=== PATIENT | male | born 1980 | race Caucasian/White ===

== ENCOUNTER 2020-04-05 06:31 | Emergency (ER) | payer OTHER ==
[~2020-04-05] VITALS: Ht 177.8 cm; Wt 106.6 kg
--- NOTE | 2020-04-05 06:49 | Emergency Department Note ---
History of Present Illnes History of Present Illness Chief Complaint: Extremity Trauma/Pain History of Present Illness This is a 39 year old male pt [id number] reports pain to bilateral shoulders and bue x2-3 weeks; pt reports has been seen by PCP and was dx'd with muscle strain; No Hx of trauma Arrival Mode: Car Broker Required: No Onset (how long ago): week(s) Location: Bilateral shoulders and elbows Quality: dull Radiation: Reports back Severity: mild Onset quality: gradual Duration (how long): week(s) Timing of current episode: constant Progression: unchanged Chronicity: recurrent Relieving factors: immobilization Exacerbating factors: movement Associated symptoms: Reports denies other symptoms Treatments prior to arrival: NSAID Past Medical/Family History Physician Review I have reviewed the patient's past medical and family history. Any updates have been documented here. Past Medical History Recent Fever: No Clinical Suspicion of Infectio: No New/Unexplained Change in Ment: No Past Medical History: None Past Surgical History: None Social History Smoking Cessation: Never Smoker Counseling Performed: No Alcohol Use: Occasional Any Illegal Drug Use: No TB Exposure/Symptoms: No Physically hurt or threatened: No Family History Family history of heart diseas: No Other Last Tetanus: UNKNOWN Review of Systems Review of Systems Constitutional: Reports no symptoms EENTM: Reports no symptoms Cardiovascular: Reports no symptoms Respiratory: Reports no symptoms Gastrointestinal: Reports no symptoms Genitourinary: Reports no symptoms Musculoskeletal: Reports no symptoms, Reports as per HPI, Reports other (Joint pain elbows, shoulder, radiates to upper back and neck) Integumentary: Reports no symptoms Neurological: Reports no symptoms Psychological: Reports no symptoms Endocrine: Reports no symptoms Hematological/Lymphatic: Reports no symptoms Physical Exam Related Data Allergies: Coded Allergies: No Known Allergies (Unverified , 08/02/14) Vital signs reviewed: Yes Physical Exam CONSTITUTIONAL Constitutional: Present well-developed, Present well-nourished HENT HENT: Present normocephalic, Present atraumatic, Present oropharynx clear/moist, Present nose normal HENT L/R: Present left ext ear normal, Present right ext ear normal EYES Eyes: Reports PERRL, Reports conjunctivae normal NECK Neck: Present ROM normal PULMONARY Pulmonary: Present effort normal, Present breath sounds normal CARDIOVASCULAR Cardiovascular: Present regular rhythm, Present heart sounds normal, Present capillary refill normal, Present normal rate GASTROINTESTINAL Abdominal: Present soft, Present nontender, Present bowel sounds normal GENITOURINARY Genitourinary: Present exam deferred SKIN Skin: Present warm, Present dry MUSCULOSKELETAL Musculoskeletal: Present ROM normal, Present other (ROM WNL in bialteral upper extemities. Sensation intact, pulses 2+/equal radial. No joint swelling or tenderness. ); Absent tenderness (Specifically, no spinal tenderness) NEUROLOGICAL Neurological: Present alert, Present oriented x 3, Present no gross motor or sensory deficits PSYCHOLOGICAL Psychological: Present mood/affect normal, Present judgement normal Procedures 12 Lead ECG Interpretation ECG Interpretation : Broker: Interpreted by ED physician Date: Apr 05, 2020 Time: 06:44 Rhythm: sinus rhythm Rate: normal BPM: 74 QRS axis: normal ST segments normal: Yes T waves normal: Yes Clinical Impression: normal ECG Assessment & Plan Medical Decision Making MDM 39-year-old male with no reported past medical history presents for bilateral shoulder and elbow pain for weeks. He states aggravating symptoms included movement. He drives machinery for work. States he's been seen by his doctor before and was prescribed Robaxin and naproxen but has not started taking this yet. He presents today because it is worse than usual. No cardiac history and no other symptoms noted. Initial differential significant for cardiac mimic versus arthritis versus overuse injury. Workup including x-rays of the shoulders, elbows, chest and EKG are all unremarkable. Diagnosis favors overuse injury. Work note given. Instructed him to take the medications prescribed by his PCP. Doubt emergent process at this time. I discussed results patient as well as expected disease time course and management. They will follow up with their primary care provider or return to the emergency department for new or worsening symptoms. Patient's appropriate for discharge. Reassessment Reassessment time: 07:50 Reassessment Well appearing, NAD Assessment & Plan Final Impression: (1) Arm pain Depart Disposition: HOME, SELF-correction Meds Unable to Obtain Active Prescriptions or Reported Meds CLOTILDE VERGARA MD Apr 05, 2020 06:47
--- NOTE | 2020-04-05 06:52 | NUR ---
NOTIFIED RADIOLOGY OF PT
--- NOTE | 2020-04-05 08:01 | Diagnostic Imaging Report ---
EXAMINATION: CHEST 2 VIEWS INDICATION: pain COMPARISON: None FINDINGS: TUBES and LINES: None. LUNGS: Normal lung volumes. Lungs are clear. No consolidations. PLEURA: No pleural effusion or pneumothorax. HEART AND MEDIASTINUM: The cardiomediastinal silhouette is unremarkable. BONES AND SOFT TISSUES: No acute osseous lesion. Soft tissues are unremarkable. UPPER ABDOMEN: No free air under the diaphragm. IMPRESSION: No acute thoracic radiographic abnormality. Signed by: Salas Paiz MD on 04/05/2020 7:57 AM
--- NOTE | 2020-04-05 08:01 | Diagnostic Imaging Report ---
X-ray 2 views of the right shoulder. HISTORY: Pain. COMPARISON: None available. FINDINGS: Bones: No acute displaced fracture. Osseous alignment is within normal limits. Joints: The joint spaces are well-maintained. Soft tissues: The soft tissues appear unremarkable. IMPRESSION: No acute fracture or dislocation of the right shoulder. Signed by: Salas Paiz MD on 04/05/2020 7:58 AM
--- NOTE | 2020-04-05 08:02 | Diagnostic Imaging Report ---
X-ray left shoulder 2 views HISTORY: Pain. COMPARISON: None available. FINDINGS: Bones: No acute displaced fracture. Osseous alignment is within normal limits. Joints: The joint spaces are well-maintained. Soft tissues: The soft tissues appear unremarkable. IMPRESSION: No acute fracture or dislocation of the left shoulder. Signed by: Salas Paiz MD on 04/05/2020 7:59 AM
--- NOTE | 2020-04-05 08:09 | Diagnostic Imaging Report ---
X-ray left elbow 2 views HISTORY: Pain. COMPARISON: None available. FINDINGS: Bones: No acute displaced fracture. Osseous alignment is within normal limits. Joints: The joint spaces are well-maintained. Soft tissues: The soft tissues appear unremarkable. Question small joint effusion. IMPRESSION: Question small joint effusion. If there is a history of trauma, consider repeat radiographs in 7-10 days to assess for healing changes. Signed by: Salas Paiz MD on 04/05/2020 8:05 AM
--- NOTE | 2020-04-05 08:13 | Diagnostic Imaging Report ---
X-ray right shoulder 2 views HISTORY: Pain. COMPARISON: None available. FINDINGS: Bones: Tiny ossific fragments projecting between the radial head and olecranon on the AP view, and possibly of the coronoid process on the lateral view. Osseous alignment is within normal limits. Joints: The joint spaces are well-maintained. Small joint effusion. IMPRESSION: Tiny ossific fragments adjacent to the medial aspect of the olecranon elbow joint may represent old trauma, or acute avulsed fracture. Small joint effusion. Correlate with history of trauma. Signed by: Salas Paiz MD on 04/05/2020 8:09 AM
== END 2020-04-05 07:55 | disposition home or self-care (01) ==
LOC: ER 06:42
DX: M25.512 Pain in left shoulder (principal); M25.511 Pain in right shoulder
CPT/HCPCS: 71046; 93005; 99283

== ENCOUNTER 2020-04-06 01:25 | Emergency (ER) | payer OTHER ==
[~2020-04-06] VITALS: Ht 177.8 cm; Wt 117.9 kg
[2020-04-06] MEDS ORDERED: KETOROLAC TROMETHAMINE 60 MG/2 ML VIAL IM ONE (01:45)
[2020-04-06] MEDS ORDERED: METHYLPREDNISOLONE SOD SUCC 125 MG/2ML VIAL IM ONE (01:45)
[2020-04-06] MEDS ORDERED: GABAPENTIN 300 MG CAP PO SCH (01:45)
--- NOTE | 2020-04-06 02:05 | Emergency Department Note ---
History of Present Illnes History of Present Illness Chief Complaint: General Medicine Complaints History of Present Illness This is a 39 year old male arrives to the ED with continued right shoulder pain, patient was seen earlier in the ED, was discharged home instructed to fill his prescription service PCP. Patient still failed to fill his prescriptions and is requesting medication the ER. Patient states pain is worse with motion denies any trauma. Historian: Patient Arrival Mode: Car Onset (how long ago): week(s) Radiation: Reports non-radiation Severity: moderate Onset quality: gradual Timing of current episode: constant Progression: waxing and waning Chronicity: recurrent Context: Denies trauma/injury Relieving factors: none Past Medical/Family History Physician Review I have reviewed the patient's past medical and family history. Any updates have been documented here. Past Medical History Recent Fever: No Clinical Suspicion of Infectio: No New/Unexplained Change in Ment: No Past Medical History: None Other Medical History: BRAIN TUMOR, ankle, elbow Past Surgical History: None Other Surgery: PER PT, "PARTIAL REMOVAL OF BRAIN TUMOR" BRAIN TUMOR, ankle, elbow Social History Smoking Cessation: Current every day smoker Counseling Performed: No Any Illegal Drug Use: No Other Last Tetanus: UNKNOWN Any Pre-Existing Lines (PICC,: No Review of Systems Review of Systems Constitutional: Reports no symptoms EENTM: Reports no symptoms Cardiovascular: Reports no symptoms Respiratory: Reports no symptoms Gastrointestinal: Reports no symptoms Genitourinary: Reports no symptoms Musculoskeletal: Reports no symptoms Integumentary: Reports no symptoms Neurological: Reports no symptoms Psychological: Reports no symptoms Endocrine: Reports no symptoms Hematological/Lymphatic: Reports no symptoms Review of other systems: All other systems negative Physical Exam Related Data Allergies: Coded Allergies: No Known Allergies (Unverified , 08/02/14) Triage Vital Signs Vital Signs Date Time Temp Pulse Resp B/P (MAP) Pulse Ox O2 Delivery O2 Flow Rate FiO2 04/06/20 01:34 98.4 78 20 135/82 98 Room Air Vital signs reviewed: Yes Physical Exam CONSTITUTIONAL Constitutional: Present well-developed, Present well-nourished HENT HENT: Present normocephalic, Present atraumatic, Present oropharynx clear/moist, Present nose normal HENT L/R: Present left ext ear normal, Present right ext ear normal EYES Eyes: Reports PERRL, Reports conjunctivae normal NECK Neck: Present ROM normal PULMONARY Pulmonary: Present effort normal, Present breath sounds normal CARDIOVASCULAR Cardiovascular: Present regular rhythm, Present heart sounds normal, Present capillary refill normal, Present normal rate GASTROINTESTINAL Abdominal: Present soft, Present nontender, Present bowel sounds normal GENITOURINARY Genitourinary: Present exam deferred SKIN Skin: Present warm, Present dry MUSCULOSKELETAL Musculoskeletal: Present tenderness; Absent edema, Absent deformity, Absent swelling NEUROLOGICAL Neurological: Present alert, Present oriented x 3, Present no gross motor or sensory deficits PSYCHOLOGICAL Psychological: Present mood/affect normal, Present judgement normal Results Imaging Imaging results reviewed: Yes Assessment & Plan Medical Decision Making MDM 39-year-old male arrives the ED with H Ethan shoulder pain, CT shoulder and cervical spine reveal cervical stenosis which is consistent with his feelings of radiculopathy. Patient's pain was well-controlled, encouraged to fill his prescriptions stable for discharge outpatient orthopedic referral given. Assessment & Plan Final Impression: (1) Arm pain Depart Disposition: HOME, SELF-CARE Last Vital Signs Date Time Temp Pulse Resp B/P (MAP) Pulse Ox O2 Delivery O2 Flow Rate FiO2 04/06/20 01:34 98.4 78 20 135/82 98 Room Air Home Meds Unable to Obtain Active Prescriptions or Reported Meds WILLIAM THOMAS DO Apr 06, 2020 02:04
--- OUTSIDE RECORDS SUMMARY | 2020-04-06 02:23 | XMS REPORT | Continuity of Care Document ---
Author Author M[facility] Organization M[facility] Address Unknown Phone Unavailable Care Team Providers Care Microbiology Coordinator Name Role Phone Marine MONZON, Brenden PP Unavailable Insurance Providers Payer name Policy type / Coverage type Policy ID Covered libertarian ID Policy [place] [employer] - CHOICE PLUS UNITED HE[employer] - CHOICE UNITED [employer] - CHOICE PLUS UNITED HEALTHCARE - CHOICE PLUS UNITED HEALTHCARE - CHOICE PLUS UNITED HEALTHCARE - CHOICE PLUS UNITED HEALTHCARE - CHOICE PLUS UNITED HEALTHCARE - CHOICE PLUS Encounters Encounter Performer Location Date Lab Report Brenden Hawthorne MD [facility] [place], 2014 Problems Problem Effective Dates Problem Status 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, 2014 Active TOBACCO USE DISORDER Sep 01, 2014 Active 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, 2014 Active HEADACHE Sep 08, 2014 Active Procedures Date Description Comments Sep 01, 2014 smoking status Current every day sm oker Sep 01, 2014 smoking/tobacco cessation, patient educa tion and counseling yes Medications Medication Instructions Start Date Status HYDROCODONE-ACETAMINOPHEN 7.5-325 MG TABS Aug Active BROMOCRIPTINE MESYLATE TABS Sep 01, 2014 Acti ve Vital Signs Date Description Test Result Sep 01, 2014 weight E&M - 3141-9 WEIGHT 239 lb Sep 01, 2014 height E&M - 8302-2 HEIGHT 70 in Sep 01, 2014 temperature E&M TEMPERATURE 82.1 deg f Sep 01, 2014 respiratory rate E&M - 9279-1 RESP RATE 18 /min Sep 01, 2014 pulse rate E&M - 8867-4 PULSE RATE 87 /min Sep 01, 2014 blood pressure, systolic - 8480-6 BP SYSTOLIC 135 mm Hg Sep 01, 2014 blood pressure, diastolic - 8462-4 BP DIASTOLIC 87 mm Hg Sep 08, 2014 weight E&M - 3141-9 WEIGHT 233 lb Sep 08, 2014 height E&M - 8302-2 HEIGHT 70 in Sep 08, 2014 temperature E&M TEMPERATURE 97.9 deg f Sep 08, 2014 respiratory rate E&M - 9279-1 RESP RATE 19 /min Sep 08, 2014 pulse rate E&M - 8867-4 PULSE RATE 91 /min Sep 08, 2014 blood pressure, systolic - 8480-6 BP SYSTOLIC 133 mm Hg Sep 08, 2014 blood pressure, diastolic - 8462-4 BP DIASTOLIC 82 mm Hg Results Date Description Test Name Value Reference Interpretation Sta tus Sep 01, 2014 erythrocyte sedimentation rate ESR 1 mm/hr 0-15 Sep 01, 2014 lactate dehydrogenase, serum LDH, TOTAL 175 IU/L 98-192 Sep 01, 2014 follicle stimulating hormone, serum FSH 6800 miu/l Units converted. See lab report for original value. Sep 01, 2014 luteinizing hormone, serum LH 8.46 mIU/mL Sep 01, 2014 thyroid stimulating hormone, serum TSH 1.620 uIU/mL 0.360-3.740 Sep 01, 2014 cortisol, serum CORTISOL SER 7.4 ug/dL 3.0-23.0
--- OUTSIDE RECORDS SUMMARY | 2020-04-06 02:23 | XMS REPORT | Summary of Care ---
Author Organization Unknown Address Unknown Phone Unavailable Encounter HQ Eliseo(FRANKY) [id number] Date(s): 09/18/14 - 09/18/14 [facility] [address] [address] Discharge Disposition: Home Physician Attending: Brenden Hawthorne MD Reason for Visit 227.3 PITUITARY ADENOMA Problem List Condition Effective Dates Status Health Status Informan t Blurred Active vision(Confirmed) Headache(Confirmed) Active Pituitary Active adenoma(Confirmed) Allergies, Adverse Reactions, Alerts Substance Reaction Severity Status NKDA Active Medications No data available for this section Results ELECTROLYTES Most recent to 1 oldest [Reference Range]: Sodium Lvl [135-145 138 mEq/L mEq/L] (09/18/14 3:29 PM) Medications Administered During Your Visit No data available for this section Immunizations Vaccine Date Refusal Reason influenza virus vaccine, inactivated 09/03/14 pneumococcal 23-valent vaccine 09/03/14 Social History Social History Type Response Alcohol Use: Current, Frequency: 1- 2 times per week1 Smoking Status Current every day smoker, T ype: Cigarettes, Exposure to Tobacco Smoke None, Cigarette Smoking Last 365 Days Yes, Re g Smoking Cessation Counseling No 1Patient reports have 1-2 drinks per week.
--- OUTSIDE RECORDS SUMMARY | 2020-04-06 02:23 | XMS REPORT | Summary of Care ---
Author Author [facility] Outpatient Imaging [facility] marisol [facility]patient [facility] marisol Address Unknown Phone Unavailable Encounter HQ Christoferr_reilly(FIN) [id number] Date(s): 04/06/15 - 04/06/15 [facility] Outpatient Imaging House [address] [place] [phone] Discharge Disposition: Home Attending Physician: Brenden Hawthorne MD Vital Signs No data available for this section Problem List Condition Effective Dates Status Health Status Informan t Blurred Active vision(Confirmed) Headache(Confirmed) Active Pituitary Active adenoma(Confirmed) Allergies, Adverse Reactions, Alerts Substance Reaction Severity Status NKDA Active Medications No data available for this section Results No data available for this section Immunizations Vaccine Date Refusal Reason influenza virus vaccine, inactivated 09/03/14 pneumococcal 23-valent vaccine 09/03/14 Procedures Procedure Date Related Diagnosis Body Site Ankle joint operations Foot joint operations MRI Nerve operation Social History Social History Type Response Alcohol Current, Frequency: 1-2 mo es per week.1 Smoking Status Current every day smoker; T ype: Cigarettes; Exposure to Tobacco Smoke None; Cigarette Smoking Last 365 Days Yes; Re g Smoking Cessation Counseling No 1Patient reports have 1-2 drinks per week. Assessment and Plan No data available for this section
--- OUTSIDE RECORDS SUMMARY | 2020-04-06 02:23 | XMS REPORT | Continuity of Care Document ---
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, 2014 Active TOBACCO USE DISORDER Sep 01, 2014 Active 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, 2014 Active HEADACHE Sep 08, 2014 Active Procedures Date Description Comments Sep 01, 2014 smoking status Current every day sm oker Sep 01, 2014 smoking/tobacco cessation, patient educa tion and counseling yes Sep 08, 2014 smoking status Current every day sm oker Sep 08, 2014 smoking/tobacco cessation, patient educa tion and counseling yes Sep 22, 2014 smoking status Current every day sm oker Sep 22, 2014 smoking/tobacco cessation, patient educa tion and counseling yes Medications Medication Instructions Start Date Status HYDROCODONE-ACETAMINOPHEN 7.5-325 MG TABS Aug Inactive BROMOCRIPTINE MESYLATE TABS Sep 01, 2014 Inac tive Vital Signs Date Description Test Result Sep [...] - 8462-4 BP DIASTOLIC 82 mm Hg Sep 22, 2014 weight E&M - 3141-9 WEIGHT 232 lb Sep 22, 2014 height E&M - 8302-2 HEIGHT 70 in Sep 22, 2014 temperature E&M TEMPERATURE 97.2 deg f Sep 22, 2014 respiratory rate E&M - 9279-1 RESP RATE 18 /min Sep 22, 2014 pulse rate E&M - 8867-4 PULSE RATE 87 /min Sep 22, 2014 blood pressure, systolic - 8480-6 BP SYSTOLIC 138 mm Hg Sep 22, 2014 blood pressure, diastolic - 8462-4 BP DIASTOLIC 90 mm Hg Apr 06, 2015 weight E&M - 3141-9 WEIGHT 246.8 lb Apr 06, 2015 height E&M - 8302-2 HEIGHT 70 in Apr 06, 2015 temperature E&M TEMPERATURE 208.8 deg f Apr 06, 2015 pulse rate E&M - 8867-4 PULSE RATE 99 /min Apr 06, 2015 blood pressure, systolic - 8480-6 BP SYSTOLIC 143 mm Hg Apr 06, 2015 blood pressure, diastolic - 8462-4 BP DIASTOLIC 95 mm Hg Results Date Description Test Name [...]
--- OUTSIDE RECORDS SUMMARY | 2020-04-06 02:23 | XMS REPORT | Continuity of Care Document ---
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 09/18/2014 [facility] MENINGIOMA 225.2 Active 09/11/2014 [facility] HEADACHE Active 09/08/2014 Condition 04/06/2015 [facility] Neuro 227.3 Active 09/07/2014 [facility] PITUITARY ADENOMA Active 09/01/2014 Condition 04/06/2015 [facility] Neuro TOBACCO USE DISORDER Active 09/01/2014 Condition 04/06/2015 [facility] Neuro MENINGIOMA Active 09/01/2014 Condition 04/06/2015 [facility] Neuro 368.2 - DIPLOPIA Active 08/05/2014 [facility] [place] PITUATARY ADEMONA Active 09/01/2013 [facility] PITUATARY ADENOMA, ICD 227.3 A ctive 09/01/2013 [facility] Final: 09/06/2014 [facility] Blurring of visual image (finding) Active Problem [facility] [place] [place] Headache (finding) Active Problem 04/09/2015 [facility] [place] [place] Pituitary adenoma (disorder) A ctive Problem [facility] [place] BENIGN ABBY PITUITARY Active [facility] AUSTIN ABBY CEREBR MENINGES Active [facility] Medications Medication Details Route Status Patient Instructions Ordering Provider Order Date Source Morphine Notes: (Same as:MORPh ine Sulfate) No Longer Active 09/04/2014 [facility] Morphine 5 mg, Route: IV, Q2H, Dosing Weight 107, kg, PRN Pain Score 7-10, Start date: 09/03/14 18:53:00, Duration: 30 day, Stop date: 10/03/14 18:52:00 Inactive 09/04/2014 [facility] heparin, porcine Notes: porcin e heparin No Longer Active 09/03/2014 [facility] sennosides, FCI 8.6 MG Oral Tablet Notes: (Same as: Senokot) No Longer Active 09/03/2014 [facility] pneumococcal capsular polysaccharide typ e 1 vaccine / pneumococcal capsular polysaccharide type 10A vaccine / pneumococcal capsular polysaccharide type 11A vaccine / pneumococcal capsular polysaccharide type 12F vaccine / pneumococcal capsular polysacchar Notes: (Same as: Pneumovax 23) Refrigerate Inactive 09/03/2014 [facility] Influenza Virus Vaccine, Inactivated A-B evcjrnx-[id number] (H3N2)-like virus (N-Inzcvdb-195-2007 [facility] X-175C) strain / Influenza Virus Vaccine, Inactivated A-Acvxfwum-00-2007, IVR-148 (H1N1) strain / Influenza Virus Vaccine, Inactivated, B-Qmbmzkz-2-lik Notes: (Same as: Fluzone Quadrivalent) Inactive 09/03/2014 [facility] magnesium sulfate 4 gm, 100 mL , Route: IVPB, Drug form: INJ, ONCE, Start date: 09/02/14 22:00:00, Stop date: 09/02/14 22:00:00 Inactive 09/03/2014 [facility] ceFAZolin + Sodium Chloride 0.9% IV 100 mL Notes: (Same As: Ancef, Kefzol) No Longer Active 09/03/2014 [facility] nter Saline Flush 0.9% Notes: (Same as: BD Posiflush) No Longer Active 09/03/2014 [facility] Famotidine Notes: (Same as: Pe pcid) No Longer Active 09/03/2014 [facility] Docusate Notes: (Same as: Cola ce) No Longer Active 09/03/2014 [facility] Morphine Notes: (Same as:MORPh ine Sulfate) Inactive 09/03/2014 [facility] NS 1,000 mL 1,000 mL, Rate: 75 ml/hr, Infuse over: 13.3 hr, Route: IV, Dosing Weight 107 kg, Total Volume: 1,000, Start date: 09/02/14 18:15:00, Duration: 30 day, Stop date: 10/02/14 18:14:00 No Longer Active 09/03/2014 [facility] Hydrocortisone sodium phosphate 50 MG/ML Injectable Solution Notes: (Same as: Solu-CORTEF) No Longer Active 09/02/2014 [facility] nter 10 ML Cefazolin 100 MG/ML Prefilled Syringe 2 gm, Route: IVPB, Drug form: INJ, Q8H, Dosing Weight 108.636, kg, Start date: 09/02/14 16:00:00, Duration: 3 doses or times, Stop date: 09/03/14 8:00:00 Inactive 09/02/2014 [facility] Ondansetron 4 mg, Route: IVP, ONCE, Dosing Weight 108.636, kg, PRN Nausea & Vomiting, Start date: 09/02/14 15:54:00 Inactive 09/02/2014 [facility] Flumazenil 0.2 mg, Route: IVP, PRN, Dosing Weight 108.636, kg, PRN Benzodiazepine Reversal, Initial dose, Start date: 09/02/14 15:54:00, Duration: 30 day, Stop date: 10/02/14 15:53:00 Inactive 09/02/2014 [facility] Naloxone 0.04 mg, Route: IVP, Q2MIN, Dosing Weight 108.636, kg, PRN Narcotic Reversal, Start date: 09/02/14 15:54:00, Duration: 8 doses or times, Stop date: Limited # of times Inactive 09/02/2014 [facility] nter Hydromorphone 0.5 mg, Route: I CRANE HELPER, Q5Min, Dosing Weight 108.636, kg, PRN Pain Score 7-10, Start date: 09/02/14 15:54:00, Duration: 4 doses or times, Stop date: Limited # of times Inactive 09/02/2014 [facility] nter Labetalol 10 mg, Route: IVP, Q 5Min, Dosing Weight 108.636, kg, PRN Elevated BP, Start date: 09/02/14 15:54:00, Duration: 5 doses or times, Stop date: Limited # of times Inactive 09/02/2014 [facility] nter Saline Flush 0.9% Notes: (Same as: BD Posiflush) No Longer Active 09/02/2014 [facility] Ondansetron Notes: (Same as: Radha boo) No Longer Active 09/02/2014 [facility] Promethazine Notes: . (Same a s: Phenergan) No Longer Active 09/02/2014 [facility] Acetaminophen 325 MG / Hydrocodone Janet trate 10 MG Oral Tablet Notes: Do not exceed 4gm/day of acetamin ophen. (Same as: [place] 325/10) No Longer Active 09/02/2014 [facility] Hydromorphone Notes: Same as: Dilaudid No Longer Active 09/02/2014 [facility] Acetaminophen 325 MG / Hydrocodone Janet trate 7.5 MG Oral Tablet [[place] 7.5/325] 1 tab, PO, PRN, 0 Refill(s) No Longer Active 09/02/2014 [facility] Acetaminophen 325 MG / Hydrocodone Janet trate 5 MG Oral Tablet [[place] 5/325] 1 tab, PO, PRN, 0 Refill(s) Inactive 09/02/2014 [facility] nter Bromocriptine PO, TID, 0 Refil l(s) No Longer Active 09/02/2014 [facility] HYDROCODONE-ACETAMINOPHEN 7.5-325 MG TABS No Longer Active 09/01/2014 [facility] BROMOCRIPTINE MESYLATE TABS No Longer Active 09/01/2014 [facility] Allergies, Adverse Reactions, Alerts No Known Medication Allergies Immunizations Immunization Date Given Site Status Last Updated Comments Source pneumococcal 23-valent vaccine 09/03/2014 Right deltoid completed [place] [facility], JAYLIN Osei,[facility], [place] influenza virus vaccine, inactivated 09/03/2014 Left deltoid completed [place] [facility], JAYLIN Osei,[facility], [place] Results Order Name Results Value Reference Range Date Interpretation Comments Source CHEM PANEL eGFR 79 10/07/2014 <sup>1</sup>Result Comment: The eGFR is calculated using the CKD-EPI formula. In most young, healthy individuals the eGFR will be >90 mL/min/1.73m2. The eGFR declines with age. An eGFR of 60-89 may be normal in some populations, particularly the elderly, for whom the CKD-EPI formula has not been extensively validated. Use of the eGFR is not recommended in the following populations:& lt;br/>
Individuals with unstable creatinine concentrations, including patients and those with serious co-morbid conditions.

Patients with extremes in muscle mass or diet.

The data above are obtained from the National Kidney Disease Education Program (NKDEP) which additionally recommends that when the eGFR is used in patients with extremes of body mass index for purposes of drug dosing, the eGFR should be multiplied by the estimated BMI. [facility] CHEM PANEL Creatinine Lvl 1.2 0.5 - 1.4 10/07/2014 [facility] CHEM PANEL BUN 13 7 - 22 10/07/2014 [facility] ELECTROLYTES Sodium Lvl 138 135 - 145 09/18/2014 [facility] ELECTROLYTES Sodium Lvl 137 135 - 145 09/07/2014 [facility] ELECTROLYTES Sodium Lvl 140 135 - 145 09/04/2014 [facility] URINE AND STOOL UA Spec Grav 1.014 <=1.030 09/03/2014 [facility] ELECTROLYTES Sodium Lvl 139 135 - 145 09/03/2014 [facility] ELECTROLYTES Sodium Lvl 139 135 - 145 09/03/2014 [facility] CHEM PANEL Magnesium Lvl 3.4 1.8 - 2.4 09/03/2014 [facility] CHEM PANEL Phosphorus 3.5 2.5 - 4.5 09/03/2014 [facility] CHEM PANEL eGFR 88 09/03/2014 <sup>1</sup>Result Comment: The eGFR is calculated using the CKD-EPI formula. In most young, healthy individuals the eGFR will be >90 mL/min/1.73m2. The eGFR declines with age. An eGFR of 60-89 may be normal in some populations, particularly the elderly, for whom the CKD-EPI formula has not been extensively validated. Use of the eGFR is not recommended in the following populations:& lt;br/>
Individuals with unstable creatinine concentrations, including patients and those with serious co-morbid conditions.

Patients with extremes in muscle mass or diet.

The data above are obtained from the National Kidney Disease Education Program (NKDEP) which additionally recommends that when the eGFR is used in patients with extremes of body mass index for purposes of drug dosing, the eGFR should be multiplied by the estimated BMI. [facility] CHEM PANEL Calcium Lvl 8.6 8.5 - 10.5 09/03/2014 [facility] CHEM PANEL CO2 24 24 - 32 09/03/2014 [facility] CHEM PANEL Creatinine Lvl 1.1 0.5 - 1.4 09/03/2014 [facility] CHEM PANEL BUN 11 7 - 22 09/03/2014 [facility] CHEM PANEL Chloride Lvl 104 95 - 109 09/03/2014 [facility] CHEM PANEL Potassium Lvl 4.7 3.5 - 5.1 09/03/2014 [facility] CHEM PANEL Glucose Lvl 123 70 - 99 09/03/2014 <sup>4</sup>Interpretive Data: Adult ref erence range values reflect the clinical guidelines
of the [place] [employer]. [facility] CHEM PANEL AGAP 12.7 10.0 - 20.0 09/03/2014 [facility] HEMATOLOGY Hgb 16.1 14.0 - 18.0 09/03/2014 [facility] HEMATOLOGY Hct 46.7 42.0 - 54.0 09/03/2014 [facility] HEMATOLOGY RBC 5.21 4.70 - 6.10 09/03/2014 [facility] HEMATOLOGY RDW 13.9 11.5 - 14.5 09/03/2014 [facility] HEMATOLOGY MCHC 34.4 32.0 - 36.0 09/03/2014 [facility] HEMATOLOGY MCH 30.9 27.0 - 31.0 09/03/2014 [facility] HEMATOLOGY MCV 89.8 80.0 - 94.0 09/03/2014 [facility] HEMATOLOGY Platelet 237 133 - 450 09/03/2014 [facility] HEMATOLOGY MPV 8.8 7.4 - 10.4 09/03/2014 [facility] HEMATOLOGY WBC 22.3 3.7 - 10.4 09/03/2014 [facility] HEMATOLOGY Segs 89.2 45.0 - 75.0 09/03/2014 [facility] HEMATOLOGY Lymphocytes 6.7 20.0 - 40.0 09/03/2014 [facility] HEMATOLOGY Eosinophils 0.1 0.0 - 4.0 09/03/2014 [facility] HEMATOLOGY Lymphocytes # 1.5 1.0 - 5.5 09/03/2014 [facility] HEMATOLOGY Monocytes 3.8 2.0 - 12.0 09/03/2014 [facility] HEMATOLOGY Segs-Bands # 19.8 1.5 - 8.1 09/03/2014 [facility] HEMATOLOGY Basophils 0.2 0.0 - 1.0 09/03/2014 [facility] HEMATOLOGY Monocytes # 0.9 0.0 - 0.8 09/03/2014 [facility] PARATHYROID PROFILE Ca Norm WB 1.06 1.05 - 1.25 09/03/2014 [facility] PARATHYROID PROFILE Ca Ion WB 1.08 1.05 - 1.25 09/03/2014 [facility] URINE AND STOOL UA Spec Grav 1.007 <=1.030 09/03/2014 [facility] CHEM PANEL Osmolality 290 280 - 300 09/03/2014 [facility] URINE AND STOOL UA Spec Grav 1.016 <=1.030 09/03/2014 [facility] URINE CHEM U Osmolality 710 300 - 800 09/03/2014 [facility] CHEM PANEL Magnesium Lvl 1.4 1.8 - 2.4 09/03/2014 [facility] CHEM PANEL Phosphorus 4.2 2.5 - 4.5 09/03/2014 [facility] ELECTROLYTES AGAP 14.4 10.0 - 20.0 09/03/2014 [facility] ELECTROLYTES eGFR 88 09/03/2014 <sup>2</sup>Result Comment: The eGFR is calculated using the CKD-EPI formula. In most young, healthy individuals the eGFR will be >90 mL/min/1.73m2. The eGFR declines with age. An eGFR of 60-89 may be normal in some populations, particularly the elderly, for whom the CKD-EPI formula has not been extensively validated. Use of the eGFR is not recommended in the following populations:& lt;br/>
Individuals with unstable creatinine concentrations, including patients and those with serious co-morbid conditions.

Patients with extremes in muscle mass or diet.

The data above are obtained from the National Kidney Disease Education Program (NKDEP) which additionally recommends that when the eGFR is used in patients with extremes of body mass index for purposes of drug dosing, the eGFR should be multiplied by the estimated BMI. [facility] ELECTROLYTES BUN 12 7 - 22 09/03/2014 [facility] ELECTROLYTES Creatinine Lvl 1.1 0.5 - 1.4 09/03/2014 [facility] ELECTROLYTES Potassium Lvl 4.4 3.5 - 5.1 09/03/2014 [facility] ELECTROLYTES Chloride Lvl 106 95 - 109 09/03/2014 [facility] ELECTROLYTES CO2 23 24 - 32 09/03/2014 [facility] ELECTROLYTES Calcium Lvl 8.4 8.5 - 10.5 09/03/2014 [facility] ELECTROLYTES Glucose Lvl 101 70 - 99 09/03/2014 <sup>5</sup>Interpretive Data: Adult ref erence range values reflect the clinical guidelines
of the [place] [employer]. [facility] HEMATOLOGY Hgb 15.8 14.0 - 18.0 09/03/2014 [facility] HEMATOLOGY RBC 5.33 4.70 - 6.10 09/03/2014 [facility] HEMATOLOGY MCV 89.5 80.0 - 94.0 09/03/2014 [facility] HEMATOLOGY Hct 47.7 42.0 - 54.0 09/03/2014 [facility] HEMATOLOGY MCH 29.7 27.0 - 31.0 09/03/2014 [facility] HEMATOLOGY RDW 14.4 11.5 - 14.5 09/03/2014 [facility] HEMATOLOGY MCHC 33.2 32.0 - 36.0 09/03/2014 [facility] HEMATOLOGY MPV 8.8 7.4 - 10.4 09/03/2014 [facility] HEMATOLOGY Platelet 235 133 - 450 09/03/2014 [facility] HEMATOLOGY WBC 26.8 3.7 - 10.4 09/03/2014 [facility] HEMATOLOGY Monocytes # 1.2 0.0 - 0.8 09/03/2014 [facility] HEMATOLOGY Basophils # 0.1 0.0 - 0.2 09/03/2014 [facility] HEMATOLOGY Segs 89.0 45.0 - 75.0 09/03/2014 [facility] HEMATOLOGY Lymphocytes 6.1 20.0 - 40.0 09/03/2014 [facility] HEMATOLOGY Monocytes 4.5 2.0 - 12.0 09/03/2014 [facility] HEMATOLOGY Eosinophils 0.1 0.0 - 4.0 09/03/2014 [facility] HEMATOLOGY Basophils 0.3 0.0 - 1.0 09/03/2014 [facility] HEMATOLOGY Segs-Bands # 23.8 1.5 - 8.1 09/03/2014 [facility] HEMATOLOGY Lymphocytes # 1.6 1.0 - 5.5 09/03/2014 [facility] PARATHYROID PROFILE Ca Norm WB 1.04 1.05 - 1.25 09/03/2014 [facility] PARATHYROID PROFILE Ca Ion WB 1.06 1.05 - 1.25 09/03/2014 [facility] BLOOD BANK RESULTS Antibody Scrn Negative (09/02/14 10:56 AM) 09/02/2014 [facility] BLOOD BANK RESULTS ABO/Rh O POS 09/02/2014 [facility] CHEM PANEL eGFR 98 09/02/2014 <sup>3</sup>Result Comment: The eGFR is calculated using the CKD-EPI formula. In most young, healthy individuals the eGFR will be >90 mL/min/1.73m2. The eGFR declines with age. An eGFR of 60-89 may be normal in some populations, particularly the elderly, for whom the CKD-EPI formula has not been extensively validated. Use of the eGFR is not recommended in the following populations:& lt;br/>
Individuals with unstable creatinine concentrations, including patients and those with serious co-morbid conditions.

Patients with extremes in muscle mass or diet.

The data above are obtained from the National Kidney Disease Education Program (NKDEP) which additionally recommends that when the eGFR is used in patients with extremes of body mass index for purposes of drug dosing, the eGFR should be multiplied by the estimated BMI. [facility] CHEM PANEL Chloride Lvl 106 95 - 109 09/02/2014 [facility] CHEM PANEL Calcium Lvl 8.9 8.5 - 10.5 09/02/2014 [facility] CHEM PANEL CO2 24 24 - 32 09/02/2014 [facility] CHEM PANEL Creatinine Lvl 1.0 0.5 - 1.4 09/02/2014 [facility] CHEM PANEL Potassium Lvl 4.2 3.5 - 5.1 09/02/2014 [facility] CHEM PANEL Glucose Lvl 113 70 - 99 09/02/2014 <sup>6</sup>Interpretive Data: Adult ref erence range values reflect the clinical guidelines
of the [place] [employer]. [facility] CHEM PANEL BUN 12 7 - 22 09/02/2014 [facility] CHEM PANEL AGAP 12.2 10.0 - 20.0 09/02/2014 [facility] HEMATOLOGY MPV 9.3 7.4 - 10.4 09/02/2014 [facility] HEMATOLOGY RDW 14.1 11.5 - 14.5 09/02/2014 [facility] HEMATOLOGY Platelet 265 133 - 450 09/02/2014 [facility] HEMATOLOGY MCV 89.3 80.0 - 94.0 09/02/2014 [facility] HEMATOLOGY MCHC 33.1 32.0 - 36.0 09/02/2014 [facility] HEMATOLOGY MCH 29.5 27.0 - 31.0 09/02/2014 [facility] HEMATOLOGY Hgb 16.5 14.0 - 18.0 09/02/2014 [facility] HEMATOLOGY Hct 50.0 42.0 - 54.0 09/02/2014 [facility] HEMATOLOGY WBC 12.3 3.7 - 10.4 09/02/2014 [facility] HEMATOLOGY RBC 5.60 4.70 - 6.10 09/02/2014 [facility] HEMATOLOGY Monocytes # 0.6 0.0 - 0.8 09/02/2014 [facility] HEMATOLOGY Lymphocytes # 2.3 1.0 - 5.5 09/02/2014 [facility] HEMATOLOGY Basophils # 0.1 0.0 - 0.2 09/02/2014 [facility] HEMATOLOGY Eosinophils # 0.3 0.0 - 0.5 09/02/2014 [facility] HEMATOLOGY Segs 73.3 45.0 - 75.0 09/02/2014 [facility] HEMATOLOGY Monocytes 5.3 2.0 - 12.0 09/02/2014 [facility] HEMATOLOGY Lymphocytes 18.6 20.0 - 40.0 09/02/2014 [facility] HEMATOLOGY Segs-Bands # 9.0 1.5 - 8.1 09/02/2014 [facility] HEMATOLOGY Basophils 0.5 0.0 - 1.0 09/02/2014 [facility] HEMATOLOGY Eosinophils 2.3 0.0 - 4.0 09/02/2014 [facility] HEMATOLOGY INR 0.95 0.85 - 1.17 09/02/2014 <sup>7</sup>Interpretive Data: RECOMMEND ED RANGES FOR PROTIME INR:
2.0- 3.0 for most medical and surgical thromboembolic states.
2.5-3.5 for artificial heart valves and recurrent embolism.

INR SHOULD BE USED ONLY FOR PATIENTS ON STABLE ANTICOAGULANT THERAPY. [facility] HEMATOLOGY PT 12.7 12.0 - 14.7 09/02/2014 [facility] HEMATOLOGY PTT 32.6 22.9 - 35.8 09/02/2014 <sup>8</sup>Interpretive Data: Heparin T herapeutic Range: 57 - 92 Seconds [facility] Chemistry LDH, TOTAL 175 98 - 192 09/01/2014 [facility] Chemistry FSH [id number] 09/01/2014 [facility] Chemistry LH 8.46 09/01/2014 [facility] Chemistry TSH 1.620 0.360 - 3.740 09/01/2014 [facility] Chemistry CORTISOL SER 7.4 3.0 - 23.0 09/01/2014 [facility] Hematology ESR 1 0 - 15 09/01/2014 [facility] Pathology Reports No Data Provided for This Section Diagnostic Reports Report Value Date Source Brain w/wo contrast MRI EXAM: MRI brain without and with contrast. INDICATION: Sellar mass. COMPARISON: [facility] 03/15/2015, 10/07/2014. TECHNIQUE: Multiecho multiplanar MR sequences of the brain are obtained pre- and postadministration of 15 cc Omni scan. DISCUSSION: No restricted diffusion. A few nonspecific scattered foci of FLAIR hyperintense signal in the frontal lobe white matter are redemonstrated. No mass effect. Ventricles are normal in size. Postoperative changes of transsphenoidal approach sellar surgery are evident. 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 No narrowing of the left internal carotid artery is identified. No suprasellar extension. No abnormal enhancement of the brain parenchyma or leptomeninges is detected. Retention cysts in the maxillary sinuses. Mucosal thickening in the interim posterior ethmoidal air cells. IMPRESSION: Postoperative changes of transsphenoidal approach sellar surgery are evident. Interval resection of previously demonstrated left sellar mass with suggestion of small residual abutting the left cavernous sinus. 04/06/2015 JAYLIN Osei Brain w contrast MRI EXAM: MRI BRAIN WITH CONTRAST. DATE: 10/07/2014 INDICATION: Meningioma, gamma knife. TECHNIQUE: High resolution three-dimensional gradient echo acquisition images of the brain are acquired for the purposes of treatment planning, with the frame for stereotactic location following intravenous administration of 20 cc Multihance. Axial T2 3-D weighted imaging was also acquired. COMPARISON: MRI brain from 09/02/2014. FINDINGS: Limited sequences were acquired for treatment planning. Again demonstrated is enhancing lesion in the left cavernous sinus and lateral aspect of the sella, with partial encasement of the internal carotid artery. Complete opacification of the left sphenoid sinus. IMPRESSION: Limited sequences for treatment planning. No interpretation is rendered. 10/07/2014 [facility] [facility] Consultation Notes No Data Provided for This Section Discharge Summaries No Data Provided for This Section History and Physicals No Data Provided for This Section Vital Signs Vital Sign Value Date Comments Source Weight 246.8 04/06/2015 [facility] Height 70 0 04/06/2015 [facility] Temperature Oral (F) 208.8 F 04/06/2015 [facility] Heart Rate 99 04/06/2015 [facility] Systolic (mm Hg) 143 04/06/2015 [facility] Diastolic (mm Hg) 95 [facility] Height 70 0 09/22/2014 [facility] Temperature Oral (F) 97.2 F 09/22/2014 [facility] Respitory Rate 18 09/22/2014 [facility] Heart Rate 87 09/22/2014 [facility] Systolic (mm Hg) 138 09/22/2014 [facility] Diastolic (mm Hg) 90 09/22/2014 [facility] Weight 233 09/08/2014 [facility] Height 70 0 09/08/2014 [facility] Temperature Oral (F) 97.9 F 09/08/2014 [facility] Respitory Rate 19 09/08/2014 [facility] Heart Rate 91 09/08/2014 [facility] Systolic (mm Hg) 133 09/08/2014 [facility] Diastolic (mm Hg) 82 09/08/2014 [facility] Temperature Oral (F) 97.5 F 09/04/2014 [facility] Heart Rate 85 09/04/2014 [facility] Diastolic (mm Hg) 67 09/04/2014 [facility] Systolic (mm Hg) 110 09/04/2014 [facility] Respitory Rate 18 09/04/2014 [facility] Temperature Oral (F) 97.6 F 09/04/2014 [facility] Diastolic (mm Hg) 72 09/04/2014 [facility] Heart Rate 91 09/04/2014 [facility] Systolic (mm Hg) 131 09/04/2014 [facility] Respitory Rate 18 09/04/2014 [facility] Systolic (mm Hg) 147 09/04/2014 [facility] Diastolic (mm Hg) 86 09/04/2014 [facility] Respitory Rate 18 09/04/2014 [facility] Temperature Oral (F) 97.9 F 09/04/2014 [facility] Heart Rate 103 09/04/2014 [facility] BMI Calculated 33.85 09/02/2014 [facility] Weight 107 09/02/2014 [facility] Height 177.8 cm 09/02/2014 [facility] BMI Calculated 34.36 09/02/2014 [facility] Weight 108.636 09/02/2014 [facility] Height 177.8 cm 09/02/2014 [facility] Weight 239 09/01/2014 [facility] Height 70 0 09/01/2014 [facility] Temperature Oral (F) 82.1 F 09/01/2014 [facility] Respitory Rate 18 09/01/2014 [facility] Heart Rate 87 09/01/2014 [facility] Systolic (mm Hg) 135 09/01/2014 [facility] Diastolic (mm Hg) 87 09/01/2014 [facility] Encounters Location Location Details Encounter Type Encounter Number Reason For Visit Attending Provider ADM Date DC Date Status Source [facility] Out[facility] Imaging [facility] [place] [facility] Services [id number] 00 Juno Chun 08/05/2014 08/06/2014 JAYLIN Winga [facility] Lab Report [id number] Brenden Hawthorne MD 09/01/2014 09/01/2014 [facility] Office Visit [id number] Brenden Hawthorne MD 09/01/2014 09/01/2014 [facility] Outpatient Imaging - [place] Outpt Diag Services [id number] Brenden Hawthorne 0 09/02/2014 [facility]/03[facility] [id number] Brenden Hawthorne 09/02/2014 09/04/2014 [facility] Outpatient [id number] Brenden Hawthorne 09/07/2014 09/08/2014 [facility] Office Visit [id number] Brenden Hawthorne MD 09/08/2014 09/08/2014 [facility] Outpatient [id number] Brenden Hawthorne 09/18/2014 09/19/2014 [facility] Office Visit [id number] Brenden Hawthorne MD 09/22/2014 09/22/2014 [facility] Outpatient [id number] Brenden Hawthorne 10/07/2014 10/07/2014 [facility] Office Visit [id number] Brenden Hawthorne MD 04/06/2015 04/06/2015 [facility] Neuro [facility] Outpatient Imaging [place] Outpt Diag Services [id number] Brenden Hawthorne 0 04/06/2015 04/07/2015 [facility] [place] [facility] [id number] AMBROSE DYER 05/19/2015 [facility] Outpatient [id number] CHARLENE HAWTHORNE 05/19/2015 [facility] Outpatient [id number] JONATHAN GARCÍA 03/31/2016 [facility] Procedures Procedure Code Date Perfomer Comments Source smoking/tobacco cessation, patient educa tion and counseling 14 09/01/2014 yes [facility] Neuro Ankle joint operations [id number] [facility], [facility] joint operations [id number] [id number] [place] Nerve operation [id number] [facility] Assessment and Plan No Data Provided for This Section Plan of Care No Data Provided for This Section Social History Social History Date Source Social History TypeResponse Alcohol Use: Current, Frequency: 1-2 times per week1 Smoking Status Current every day smoker, Type: Cigarettes, Exposure to Tobacco Smoke None, Cigarette Smoking Last 365 Days Yes, Reg Smoking Cessation Counseling No 1Patient reports have 1-2 drinks per week. 09/03/2014 [facility] Social History TypeResponse Alcohol Use: Current, Frequency: 1-2 times per week1 Smoking Status Current every day smoker, Type: Cigarettes, Exposure to Tobacco Smoke None, Cigarette Smoking Last 365 Days Yes, Reg Smoking Cessation Counseling No 1Patient reports have 1-2 drinks per week. 09/03/2014 [facility] [place] Social History TypeResponse Alcohol Use: Current, Frequency: 1-2 times per week1 Smoking Status Current every day smoker, Type: Cigarettes, Exposure to Tobacco Smoke None, Cigarette Smoking Last 365 Days Yes, Reg Smoking Cessation Counseling No 1Patient reports have 1-2 drinks per week. 09/03/2014 [facility] Social History TypeResponse Alcohol Current, Frequency: 1-2 times per week.1 Smoking Status Current every day smoker; Type: Cigarettes; Exposure to Tobacco Smoke None; Cigarette Smoking Last 365 Days Yes; Reg Smoking Cessation Counseling No 1Patient reports have 1-2 drinks per week. 09/03/2014 JAYLIN Osei Family History No Data Provided for This Section Advance Directives No Data Provided for This Section Functional Status No Data Provided for This Section
--- OUTSIDE RECORDS SUMMARY | 2020-04-06 02:23 | XMS REPORT | Continuity of Care Document ---
Author Author [facility] Organization [facility] Address Unknown Phone Unavailable Care Team Providers Care Riverboat Master Name Role Phone Marine MONZON, Brenden PP Unavailable Insurance Providers Payer name Policy type / Coverage type Policy ID Covered alliance party ID Policy [employer] - CHOICE [...] Office Visit Brenden Hawthorne MD [facility] Sep 22, 2014 Problems Problem Effective Dates Problem Status [...] - 8462-4 BP DIASTOLIC 90 mm Hg Results Date Description Test Name [...]
--- OUTSIDE RECORDS SUMMARY | 2020-04-06 02:23 | XMS REPORT | Summary of Care ---
Author Organization Unknown Address Unknown Phone Unavailable Encounter [facility]ise[facility](FRANKY) [id number] Date(s): 09/07/14 - 09/07/14 [facility] [address] [address] Discharge Disposition: Home Physician Attending: Brenden Hawthorne MD Reason for Visit 227.3 Problem List Condition Effective Dates Status Health Status Informan t Blurred Active vision(Confirmed) Headache(Confirmed) Active Pituitary Active adenoma(Confirmed) Allergies, Adverse Reactions, Alerts Substance Reaction Severity Status NKDA Active Medications No data available for this section Results ELECTROLYTES Most recent to 1 oldest [Reference Range]: Sodium Lvl [135-145 137 mEq/L mEq/L] (09/07/14 1:23 PM) Medications Administered During Your Visit No [...]
--- OUTSIDE RECORDS SUMMARY | 2020-04-06 02:23 | XMS REPORT | Summary of Care ---
Author Organization Unknown Address Unknown Phone Unavailable Encounter HQ Lucas_reilly(FRANKY) [id number] Date(s): 09/02/14 - 09/04/[address] Final: Discharge Disposition: Home Physician Attending: Brenden Hawthorne MD Physician Admitting: Brenden Hawthorne MD Physician_Referring: Brenden Hawthorne MD Reason for Visit PITUATARY ADENOMA, ICD 227.3 Vital Signs 1 2 3 Most recent to oldest [Reference Range]: 177.8 cm (09/02/14 5:49 PM) 177.8 cm (09/02/14 10:52 AM) Height 97.5 DegF (09/04/14 4:13 AM) 97.6 DegF (09/03/14 11:23 PM) 97.9 DegF (09/03/14 8:17 PM) Temperature Oral [96.4-99.1 DegF] 110 mmHg (09/04/14 4:13 AM) 131 mmHg (09/03/14 11:23 PM) 147 mmHg *HI* (09/03/14 8:17 PM) Systolic Blood Pressure [90-140 mmHg] 67 mmHg (09/04/14 4:13 AM) 72 mmHg (09/03/14 11:23 PM) 86 mmHg (09/03/14 8:17 PM) Diastolic Blood Pressure [60-90 mmHg] 18 BRMIN (09/04/14 4:13 AM) 18 BRMIN (09/03/14 11:23 PM) 18 BRMIN (09/03/14 8:17 PM) Respiratory Rate [14-20 BRMIN] 85 bpm (09/04/14 4:13 AM) 91 bpm (09/03/14 11:23 PM) 103 bpm *HI* (09/03/14 8:17 PM) Peripheral Pulse Rate [60-100 bpm] 107 kg (1/7/15 5:49 PM) 108.636 kg (09/02/14 10:52 AM) Weight 33.85 m2 (09/02/14 5:49 PM) 34.36 m2 (09/02/14 10:52 AM) Body Mass Index Problem List Condition Effective Dates Status Health Status Informan t Blurred Active vision(Confirmed) Headache(Confirmed) Active Pituitary Active adenoma(Confirmed) Allergies, Adverse Reactions, Alerts Substance Reaction Severity Status NKDA Active Medications acetaminophen-hydrocodone 325 mg-10 mg oral tablet 1 tab, Route: PO, Drug Form: TAB, Dosing Weight 108.636, kg, Q4H, PRN Pain Score 1-3, Start date: 09/02/14 13:01:00, Duration: 30 day, Stop date: 10/02/14 13:00 :00 Notes: Do not exceed 4gm/day of acetaminophen. (Same as: Hermitage 325/10) Start Date: 09/02/14 Stop Date: 09/04/14 Status: Discontinued acetaminophen-hydrocodone 325 mg-10 mg oral tablet 2 tab, Route: PO, Drug Form: TAB, Dosing Weight 108.636, kg, Q4H, PRN Pain Score 4-6, Start date: 09/02/14 13:01:00, Duration: 30 day, Stop date: 10/02/14 13:00 :00 Notes: Do not exceed 4gm/day of acetaminophen. (Same as: [place] 325/10) Start Date: 09/02/14 Stop Date: 09/04/14 Status: Discontinued bromocriptine PO, TID, 0 Refill(s) Start Date: 09/02/14 Stop Date: 09/04/14 Status: Discontinued ceFAZolin (SCIP) 2 gm, Route: IVPB, Drug form: INJ, Q8H, Dosing Weight 108.636, kg, Start date: 0 09/02/14 16:00:00, Duration: 3 doses or times, Stop date: 09/03/14 8:00:00 Start Date: 09/02/14 Stop Date: 09/02/14 Status: Deleted ceFAZolin + Sodium Chloride 0.9% IV 100 mL 2 gm, Route: IVPB, ABXQ8H, Start date: 09/02/14 22:00:00, Duration: 3 doses or t imes, Stop date: 09/03/14 14:00:00 Notes: (Same As: Ancef, Kefzol) Start Date: 09/02/14 Stop Date: 09/03/14 Status: Completed docusate 100 mg, 1 cap, Route: PO, Drug form: CAP, Q12H, Dosing Weight 108.636, kg, Start date: 09/02/14 21:00:00, Duration: 30 day, Stop date: 10/02/14 9:00:00 Notes: (Same as: Colace) Start Date: 09/02/14 Stop Date: 09/04/14 Status: Discontinued famotidine 20 mg, 1 tab, Route: PO, Drug form: TAB, Q12H, Dosing Weight 108.636, kg, Start date: 09/02/14 21:00:00, Duration: 30 day, Stop date: 10/02/14 9:00:00 Notes: (Same as: Pepcid) Start Date: 09/02/14 Stop Date: 09/04/14 Status: Discontinued flumazenil 0.2 mg, Route: IVP, PRN, Dosing Weight 108.636, kg, PRN Benzodiazepine Reversal, Initial dose, Start date: 09/02/14 15:54:00, Duration: 30 day, Stop date: 10/02 15:53:00 Start Date: 09/02/14 Stop Date: 09/02/14 Status: Discontinued heparin 5,000 unit, 1 mL, Route: SUB-Q, Drug form: INJ, Q8H, Dosing Weight 107, kg, Star t date: 09/03/14 16:00:00, Duration: 30 day, Stop date: 10/03/14 8:00:00 Notes: porcine heparin Start Date: 09/03/14 Stop Date: 09/04/14 Status: Discontinued hydrocortisone 100 mg injection 50 mg, 1 mL, Route: IV, Drug form: PDR/INJ, Q8H, Dosing Weight 108.636, kg, Star t date: 09/02/14 16:00:00, Duration: 30 day, Stop date: 10/02/14 8:00:00 Notes: (Same as: Solu-CORTEF) Start Date: 09/02/14 Stop Date: 09/04/14 Status: Discontinued hydromorphone 0.5 mg, Route: IVP, Q5Min, Dosing Weight 108.636, kg, PRN Pain Score 7-10, Start date: 09/02/14 15:54:00, Duration: 4 doses or times, Stop date: Limited # of ti mes Start Date: 09/02/14 Stop Date: 09/02/14 Status: Discontinued hydromorphone 0.5 mg, 0.25 mL, Route: IVP, Drug form: INJ, Q4H, Dosing Weight 108.636, kg, PRN Pain Score 7-10, Start date: 09/02/14 13:01:00, Duration: 30 day, Stop date: 13:00:00 Notes: Same as: Dilaudid Start Date: 09/02/14 Stop Date: 09/03/14 Status: Discontinued influenza virus vaccine, inactivated 0.5 ml, Route: IM, Drug Form: SUSP, Daily, Start date: 09/03/14 9:00:00, Duratio n: 1 doses or times, Stop date: 09/03/14 9:00:00 Notes: (Same as: Fluzone Quadrivalent) Start Date: 09/03/14 Stop Date: 09/03/14 Status: Completed labetalol 10 mg, Route: IVP, Q5Min, Dosing Weight 108.636, kg, PRN Elevated BP, Start date : 09/02/14 15:54:00, Duration: 5 doses or times, Stop date: Limited # of times Start Date: 09/02/14 Stop Date: 09/02/14 Status: Discontinued magnesium sulfate 4 gm, 100 mL, Route: IVPB, Drug form: INJ, ONCE, Start date: 09/02/14 22:00:00, Stop date: 09/02/14 22:00:00 Start Date: 09/02/14 Stop Date: 09/02/14 Status: Completed magnesium sulfate 2 gm, 50 mL, Route: IVPB, Drug form: INJ, Q2H, Start date: 09/02/14 22:00:00, Du ration: 2 doses or times, Stop date: 09/03/14 0:00:00 Start Date: 09/02/14 Stop Date: 09/03/14 Status: Completed morphine Sulfate 5 mg, Route: IV, Q2H, Dosing Weight 107, kg, PRN Pain Score 7-10, Start date: 18:53:00, Duration: 30 day, Stop date: 10/03/14 18:52:00 Start Date: 09/03/14 Stop Date: 09/03/14 Status: Discontinued morphine Sulfate 2 mg, 1 mL, Route: IVP, Drug form: INJ, ONCE, Dosing Weight 107, kg, Start date: 09/02/14 19:41:00, Stop date: 09/02/14 19:41:00 Notes: (Same as:MORPhine Sulfate) Start Date: 09/02/14 Stop Date: 09/02/14 Status: Completed morphine Sulfate 2 mg, 1 mL, Route: IVP, Drug form: INJ, Q4H, Dosing Weight 107, kg, PRN Pain Sco re 7-10, Start date: 09/03/14 21:55:00, Duration: 30 day, Stop date: 10/03/14 21 :54:00 Notes: (Same as:MORPhine Sulfate) Start Date: 09/03/14 Stop Date: 09/04/14 Status: Discontinued naloxone 0.04 mg, Route: IVP, Q2MIN, Dosing Weight 108.636, kg, PRN Narcotic Reversal, St art date: 09/02/14 15:54:00, Duration: 8 doses or times, Stop date: Limited # of times Start Date: 09/02/14 Stop Date: 09/02/14 Status: Discontinued Hermitage 5/325 oral tablet 1 tab, PO, PRN, 0 Refill(s) Start Date: 09/02/14 Stop Date: 09/02/14 Status: Discontinued Hermitage 7.5/325 oral tablet 1 tab, PO, PRN, 0 Refill(s) Start Date: 09/02/14 Stop Date: 09/04/14 Status: Discontinued NS 1,000 mL 1,000 mL, Rate: 75 ml/hr, Infuse over: 13.3 hr, Route: IV, Dosing Weight 107 kg, Total Volume: 1,000, Start date: 09/02/14 18:15:00, Duration: 30 day, Stop date: 10/02/14 18:14:00 Start Date: 09/02/14 Stop Date: 09/04/14 Status: Discontinued ondansetron 4 mg, Route: IVP, ONCE, Dosing Weight 108.636, kg, PRN Nausea & Vomiting, Start date: 09/02/14 15:54:00 Start Date: 09/02/14 Stop Date: 09/02/14 Status: Discontinued ondansetron 4 mg, 2 mL, Route: IVP, Drug form: INJ, Q8H, Dosing Weight 108.636, kg, PRN Naus ea & Vomiting, Start date: 09/02/14 13:01:00, Duration: 30 day, Stop date: 10/02/14 13:00:00 Notes: (Same as: Zofran) Start Date: 09/02/14 Stop Date: 09/04/14 Status: Discontinued pneumococcal 23-valent vaccine 0.5 ml, Route: IM, Drug Form: INJ, Daily, Start date: 09/03/14 9:00:00, Duration : 1 doses or times, Stop date: 09/03/14 9:00:00 Notes: (Same as: Pneumovax 23) Refrigerate Start Date: 09/03/14 Stop Date: 09/03/14 Status: Completed promethazine 12.5 mg, 0.5 mL, Route: IVPB, Drug form: INJ, Q6H, Dosing Weight 108.636, kg, [place] N Nausea & Vomiting, Start date: 09/02/14 13:01:00, Duration: 30 day, Stop date: 10/02/14 13:00:00 Notes: . (Same as: Phenergan) Start Date: 09/02/14 Stop Date: 09/04/14 Status: Discontinued Saline Flush 0.9% 10 ml, Route: IVP, Drug Form: INJ, Dosing Weight 108.636, kg, PRN, PRN Line Flus h, Start date: 09/02/14 13:01:00, Duration: 30 day, Stop date: 10/02/14 13:00:00 Notes: (Same as: BD Posiflush) Start Date: 09/02/14 Stop Date: 09/04/14 Status: Discontinued Saline Flush 0.9% 10 ml, Route: IVP, Drug Form: INJ, Dosing Weight 108.636, kg, Q12H, Start date: 09/02/14 21:00:00, Duration: 30 day, Stop date: 10/02/14 9:00:00 Notes: (Same as: BD Posiflush) Start Date: 09/02/14 Stop Date: 09/04/14 Status: Discontinued senna 8.6 mg oral tablet 8.6 mg, 1 tab, Route: PO, Drug Form: TAB, Dosing Weight 107, kg, BID, Start date : 09/03/14 9:00:00, Duration: 30 day, Stop date: 10/02/14 17:00:00 Notes: (Same as: Senokot) Start Date: 09/03/14 Stop Date: 09/04/14 Status: Discontinued Results BLOOD BANK RESULTS 1 2 3 Most recent to oldest [Reference Range]: O POS *Unknown* (09/02/14 10:56 AM) ABO/Rh Negative (09/02/14 10:56 AM) Antibody Scrn ELECTROLYTES 1 2 3 Most recent to oldest [Reference Range]: 140 mEq/L (09/03/14 9:54 PM) 139 mEq/L (09/03/14 2:00 PM) 139 mEq/L (09/03/14 9:57 AM) Sodium Lvl [135-145 mEq/L] 4.7 mEq/L (09/03/14 3:00 AM) 4.4 mEq/L (09/02/14 7:53 PM) 4.2 mEq/L (09/02/14 10:56 AM) Potassium Lvl [3.5-5.1 mEq/L] 104 mEq/L (09/03/14 3:00 AM) 106 mEq/L (09/02/14 7:53 PM) 106 mEq/L (09/02/14 10:56 AM) Chloride Lvl [95-109 mEq/L] 24 mEq/L (09/03/14 3:00 AM) 23 mEq/L *LOW* (09/02/14 7:53 PM) 24 mEq/L (09/02/14 10:56 AM) CO2 [24-32 mEq/L] 12.7 mEq/L (09/03/14 3:00 AM) 14.4 mEq/L (09/02/14 7:53 PM) 12.2 mEq/L (09/02/14 10:56 AM) AGAP [10.0-20.0 mEq/L] CHEM PANEL 1 2 3 Most recent to oldest [Reference Range]: 1.1 mg/dL (09/03/14 3:00 AM) 1.1 mg/dL (09/02/14 7:53 PM) 1.0 mg/dL (09/02/14 10:56 AM) Creatinine Lvl [0.5-1.4 mg/dL] 88 mL/min/1.73m2 1 *NA* (09/03/14 3:00 AM) 88 mL/min/1.73m2 2 *NA* (09/02/14 7:53 PM) 98 mL/min/1.73m2 3 *NA* (09/02/14 10:56 AM) eGFR 11 mg/dL (09/03/14 3:00 AM) 12 mg/dL (09/02/14 7:53 PM) 12 mg/dL (09/02/14 10:56 AM) BUN [7-22 mg/dL] 123 mg/dL 4 *HI* (09/03/14 3:00 AM) 101 mg/dL 5 *HI* (09/02/14 7:53 PM) 113 mg/dL 6 *HI* (09/02/14 10:56 AM) Glucose Lvl [70-99 mg/dL] 8.6 mg/dL (09/03/14 3:00 AM) 8.4 mg/dL *LOW* (09/02/14 7:53 PM) 8.9 mg/dL (09/02/14 10:56 AM) Calcium Lvl [8.5-10.5 mg/dL] 3.5 mg/dL (09/03/14 3:00 AM) 4.2 mg/dL (09/02/14 7:53 PM) Phosphorus [2.5-4.5 mg/dL] 3.4 mg/dL *HI* (09/03/14 3:00 AM) 1.4 mg/dL *LOW* (09/02/14 7:53 PM) Magnesium Lvl [1.8-2.4 mg/dL] 290 mOsm/kg (09/02/14 9:30 PM) Osmolality [280-300 mOsm/kg] 1Result Comment: The eGFR is calculated using the CKD-EPI formula. In most young, healthy individuals the eGFR will be >90 mL/min/1.73m2. The eGFR declines with age. An eGFR of 60-89 may be normal in some populations, particularly the elderly, for whom the CKD-EPI formula has not been extensively validated. Use of the eGFR is not recommended in the following populations: Individuals with unstable creatinine concentrations, including patients and those with serious co-morbid conditions. Patients with extremes in muscle mass or diet. The data above are obtained from the National Kidney Disease Education Program ( NKDEP) which additionally recommends that when the eGFR is used in patients with extremes of body mass index for purposes of drug dosing, the eGFR should be mul tiplied by the estimated BMI. 2Result Comment: The eGFR is calculated using the CKD-EPI formula. In most young, healthy individuals the eGFR will be >90 mL/min/1.73m2. The eGFR declines with age. An eGFR of 60-89 may be normal in some populations, particularly the elderly, for whom the CKD-EPI formula has not been extensively validated. Use of the eGFR is not recommended in the following populations: Individuals with unstable creatinine concentrations, including patients and those with serious co-morbid conditions. Patients with extremes in muscle mass or diet. The data above are obtained from the National Kidney Disease Education Program ( NKDEP) which additionally recommends that when the eGFR is used in patients with extremes of body mass index for purposes of drug dosing, the eGFR should be mul tiplied by the estimated BMI. 3Result Comment: The eGFR is calculated using the CKD-EPI formula. In most young, healthy individuals the eGFR will be >90 mL/min/1.73m2. The eGFR declines with age. An eGFR of 60-89 may be normal in some populations, particularly the elderly, for whom the CKD-EPI formula has not been extensively validated. Use of the eGFR is not recommended in the following populations: Individuals with unstable creatinine concentrations, including patients and those with serious co-morbid conditions. Patients with extremes in muscle mass or diet. The data above are obtained from the National Kidney Disease Education Program ( NKDEP) which additionally recommends that when the eGFR is used in patients with extremes of body mass index for purposes of drug dosing, the eGFR should be mul tiplied by the estimated BMI. 4Interpretive Data: Adult reference range values reflect the clinical guidelines of the [place] [employer]. 5Interpretive Data: Adult reference range values reflect the clinical guidelines of the [place] [employer]. 6Interpretive Data: Adult reference range values reflect the clinical guidelines of the [place] [employer]. PARATHYROID PROFILE 1 2 3 Most recent to oldest [Reference Range]: 1.08 mMol/L (09/03/14 3:00 AM) 1.06 mMol/L (09/02/14 7:53 PM) Ca Ion WB [1.05-1.25 mMol/L] 1.06 mMol/L (09/03/14 3:00 AM) 1.04 mMol/L *LOW* (09/02/14 7:53 PM) Ca Norm WB [1.05-1.25 mMol/L] URINE CHEM 1 2 3 Most recent to oldest [Reference Range]: 710 mOsm/kg (09/02/14 9:30 PM) U Osmolality [300-800 mOsm/kg] URINE AND STOOL 1 2 3 Most recent to oldest [Reference Range]: 1.014 (09/03/14 2:58 PM) 1.007 (09/03/14 3:00 AM) 1.016 (09/02/14 9:30 PM) UA Spec Grav [<=1.030] HEMATOLOGY 1 2 3 Most recent to oldest [Reference Range]: 22.3 K/CMM *HI* (09/03/14 3:00 AM) 26.8 K/CMM *HI* (09/02/14 7:53 PM) 12.3 K/CMM *HI* (09/02/14 10:56 AM) WBC [3.7-10.4 K/CMM] 5.21 M/CMM (09/03/14 3:00 AM) 5.33 M/CMM (09/02/14 7:53 PM) 5.60 M/CMM (09/02/14 10:56 AM) RBC [4.70-6.10 M/CMM] 16.1 g/dL (09/03/14 3:00 AM) 15.8 g/dL (09/02/14 7:53 PM) 16.5 g/dL (09/02/14 10:56 AM) Hgb [14.0-18.0 g/dL] 46.7 % (09/03/14 3:00 AM) 47.7 % (09/02/14 7:53 PM) 50.0 % (09/02/14 10:56 AM) Hct [42.0-54.0 %] 89.8 fL (09/03/14 3:00 AM) 89.5 fL (09/02/14 7:53 PM) 89.3 fL (09/02/14 10:56 AM) MCV [80.0-94.0 fL] 30.9 pg (09/03/14 3:00 AM) 29.7 pg (09/02/14 7:53 PM) 29.5 pg (09/02/14 10:56 AM) MCH [27.0-31.0 pg] 34.4 g/dL (09/03/14 3:00 AM) 33.2 g/dL (09/02/14 7:53 PM) 33.1 g/dL (09/02/14 10:56 AM) MCHC [32.0-36.0 g/dL] 13.9 % (09/03/14 3:00 AM) 14.4 % (09/02/14 7:53 PM) 14.1 % (09/02/14 10:56 AM) RDW [11.5-14.5 %] 237 K/CMM (09/03/14 3:00 AM) 235 K/CMM (09/02/14 7:53 PM) 265 K/CMM (09/02/14 10:56 AM) Platelet [133-450 K/CMM] 8.8 fL (09/03/14 3:00 AM) 8.8 fL (09/02/14 7:53 PM) 9.3 fL (09/02/14 10:56 AM) MPV [7.4-10.4 fL] 89.2 % *HI* (09/03/14 3:00 AM) 89.0 % *HI* (09/02/14 7:53 PM) 73.3 % (09/02/14 10:56 AM) Segs [45.0-75.0 %] 6.7 % *LOW* (09/03/14 3:00 AM) 6.1 % *LOW* (09/02/14 7:53 PM) 18.6 % *LOW* (09/02/14 10:56 AM) Lymphocytes [20.0-40.0 %] 3.8 % (09/03/14 3:00 AM) 4.5 % (09/02/14 7:53 PM) 5.3 % (09/02/14 10:56 AM) Monocytes [2.0-12.0 %] 0.1 % (09/03/14 3:00 AM) 0.1 % (09/02/14 7:53 PM) 2.3 % (09/02/14 10:56 AM) Eosinophils [0.0-4.0 %] 0.2 % (09/03/14 3:00 AM) 0.3 % (09/02/14 7:53 PM) 0.5 % (09/02/14 10:56 AM) Basophils [0.0-1.0 %] 19.8 K/CMM *HI* (09/03/14 3:00 AM) 23.8 K/CMM *HI* (09/02/14 7:53 PM) 9.0 K/CMM *HI* (09/02/14 10:56 AM) Segs-Bands # [1.5-8.1 K/CMM] 1.5 K/CMM (09/03/14 3:00 AM) 1.6 K/CMM (09/02/14 7:53 PM) 2.3 K/CMM (09/02/14 10:56 AM) Lymphocytes # [1.0-5.5 K/CMM] 0.9 K/CMM *HI* (09/03/14 3:00 AM) 1.2 K/CMM *HI* (09/02/14 7:53 PM) 0.6 K/CMM (09/02/14 10:56 AM) Monocytes # [0.0-0.8 K/CMM] 0.3 K/CMM (09/02/14 10:56 AM) Eosinophils # [0.0-0.5 K/CMM] 0.1 K/CMM (09/02/14 7:53 PM) 0.1 K/CMM (09/02/14 10:56 AM) Basophils # [0.0-0.2 K/CMM] 12.7 seconds (1/7/15 10:56 AM) PT [12.0-14.7 seconds] 0.95 7 (09/02/14 10:56 AM) INR [0.85-1.17] 32.6 seconds 8 (09/02/14 10:56 AM) PTT [22.9-35.8 seconds] 7Interpretive Data: RECOMMENDED RANGES FOR PROTIME INR: 2.0-3.0 for most medical and surgical thromboembolic states. 2.5-3.5 for artificial heart valves and recurrent embolism. INR SHOULD BE USED ONLY FOR PATIENTS ON STABLE ANTICOAGULANT THERAPY. 8Interpretive Data: Heparin Therapeutic Range: 57 - 92 Seconds Medications Administered During Your Visit No data available for this section Immunizations Vaccine Date Refusal Reason influenza virus vaccine, inactivated 09/03/14 pneumococcal 23-valent vaccine 09/03/14 Procedures Procedure Type Body Site Date of Procedure Related Diag nosis Ankle joint operations Foot joint operations MRI [...]
--- OUTSIDE RECORDS SUMMARY | 2020-04-06 02:23 | XMS REPORT | Summary of Care ---
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 Problem List Condition Effective Dates Status Health Status Informan t Blurred Active vision(Confirmed) Headache(Confirmed) Active Pituitary Active adenoma(Confirmed) Allergies, Adverse Reactions, Alerts Substance Reaction Severity Status NKDA Active Medications No data available for this section Results CHEM PANEL Most recent to 1 oldest [Reference Range]: Creatinine Lvl 1.2 mg/dL [0.5-1.4 mg/dL] (10/07/14 5:40 AM) eGFR 79 mL/min/1.73m2 1 *NA* (10/07/14 5:40 AM) BUN [7-22 mg/dL] 13 mg/dL (10/07/14 5:40 AM) 1Result Comment: The eGFR is calculated using [...] be mul tiplied by the estimated BMI. Medications Administered During Your Visit No data [...]
--- OUTSIDE RECORDS SUMMARY | 2020-04-06 02:23 | XMS REPORT | Summary of Care ---
Author Organization Unknown Address Unknown Phone Unavailable Encounter HQ Morntr_reilly([facility]) [id number] Date(s): 08/05/14 - 08/05/14 [facility] Outpatient Imaging - [address] [address] [place] Discharge Disposition: Home Physician Attending: Juno Chun MD Reason for Visit 368.2 - D[place] Problem List No data available for this section Allergies, Adverse Reactions, Alerts No data available for this section Medications No data available for this section Medications Administered During Your Visit No data available for this section Immunizations No data available for this section
--- OUTSIDE RECORDS SUMMARY | 2020-04-06 02:23 | XMS REPORT | Continuity of Care Document ---
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
--- OUTSIDE RECORDS SUMMARY | 2020-04-06 02:23 | XMS REPORT | Summary of Care ---
Author Organization Unknown Address Unknown Phone Unavailable Encounter HQ Eliseo([facility]) [id number] Date(s): 09/02/14 - 09/02/14 [facility] Outpatient Imaging - [facility] [address] Discharge Disposition: Home Physician Attending: Brenden Hawthorne MD Reason for Visit 227.3 - BENIGN ABBY PITU Problem List Condition Effective Dates Status Health [...]
--- OUTSIDE RECORDS SUMMARY | 2020-04-06 02:23 | XMS REPORT | Continuity of Care Document ---
Author Author MNA Organization MNA Address Unknown Phone Unavailable Care Team Providers Care Compliance Consultant Name Role Phone Marine MONZON, Brenden PP Unavailable Insurance Providers Payer name Policy type / Coverage type Policy ID Covered constitution party ID Policy [place] [employer] - CHOICE PLUS [employer] - CHOICE UNITED [employer] - CHOICE PLUS [employer] - CHOICE PLUS [employer] - CHOICE PLUS [employer] - CHOICE PLUS [employer] - CHOICE PLUS UNITED [employer] - CHOICE PLUS UNITED HE[employer] - CHOICE PLUS Encounters Encounter Performer Location Date Office Visit Brenden Hawthorne [place] [facility] [place] Problems Problem Effective Dates Problem Status [...]
--- OUTSIDE RECORDS SUMMARY | 2020-04-06 02:24 | XMS REPORT | Continuity of Care Document ---
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 3 PITUITARY ADENOMA Active 09/18/2014 [facility] Active 2014-09-18 00:00:00 2014-09-18 15:25:00 [facility] MENINGIOMA 225.2 MENI NGIOMA 225.2 Active 09/11/2014 [facility] Diagnosis Active 2014-09-11 00:00:00 2014-10-07 0 8:49:00 [facility] HEADACHE HEAD ACHE Active 09/08/2014 Condition 04/06/2015 [facility] Active 2014-09-08 00:00:00 2015-04-06 13:47:20 [facility] 227.3 227. 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 2 - DIPLOPIA Active 08/05/2014 [facility] Active 2014-08-05 00:01:00 2014-08-07 13:55:00 [facility] PITUATARY ADEMONA PITU ATARY ADEMONA Active 09/01/2013 [facility] Diagnosis Active 2013-09-01 00:00:00 2014-08 15:44:00 [facility] PITUATARY ADENOMA, ICD 227.3 P ITUATARY ADENOMA, ICD 227.3 Active 09/01/2013 [facility] Diagnosis Active 2013-09-01 00:00:00 2014-09-09 21:53:00 [facility] Headache Problem Active [facility] Pain of upper extremity Problem Active [facility] Final: Lisa l: 09/06/2014 [facility] Problem 2014-09-06 11:55:21 [facility] Blurring of visual image (finding) Blurring of visual image (finding) Active Problem 04/09/2015 [facility], JAYLIN Osei,[facility] JAYLIN [place] Problem Active 2015-04-09 00:00:40 Treva sOei Pituitary adenoma (disorder) P ituitary adenoma (disorder) Active Problem 04/09/2015 [facility], JAYLIN Osei,[facility] JAYLIN [place] Problem Active 2015-04-09 00:00:40 [facility] BENIGN ABBY PITUITARY DENNIS GN ABBY PITUITARY Active [facility] Diagnosis Active 2014-09-09 21:53:00 Treva Osei AUSTIN ABBY CEREBR MENINGES AUSTIN ABBY CEREBR MENINGES Active [facility] Diagnosis Active 2014-10-07 08:49:00 Treva Osei Allergies, Adverse Reactions, Alerts This patient has no known allergies or adverse reactions. Social History Social Habit Start Date Stop Date Quantity Comments Source Social History 2014-09-03 00:26:00 2014-09-03 00:26:00 Treva Osei Sex Assigned At 1980 00:00:00 1980 00:00:00 Male [facility] Medications Ordered Medication Name Filled Medication Name Start Date Stop Da te Current Medication? Ordering Clinician Indication Dosage Frequency Signature (SIG) Comments Components Source Morphine 2014-09-04 03:55:00 No Not es: (Same as:MORPhine Sulfate) [facility] Morphine 2014-09-04 00:53:00 No 5 mg, Route: IV, Q2H, Dosing Weight 107, kg, PRN Pain Score 7-10, Start date: 09/03/14 18:53:00, Duration: 30 day, Stop date: 10/03/14 18:52:00 [facility] heparin, porcine 2014-09-03 22:00:00 No Not es: porcine heparin [facility] sennosides, LONG TERM 8.6 MG Oral Tablet 2014-09-03 15:00:00 No Notes: (Same as: Senokot) [facility] pneumococcal capsular polysaccharide typ e 1 vaccine / pneumococcal capsular polysaccharide type 10A vaccine / pneumococcal capsular polysaccharide type 11A vaccine / pneumococcal capsular polysaccharide type 12F vaccine / pneumococcal capsular polysacchar 2014-09-03 15:00:00 No Notes: (Same as: Pneumovax 23) Refrigerate [facility] Influenza Virus Vaccine, Inactivated A-B bfywqnu-[id number] (H3N2)-like virus (D-Pdenbvc-550-2006 [facility] X-175C) strain / Influenza Virus Vaccine, Inactivated A-Ughovytt-90-2006, IVR-148 (H1N1) strain / Influenza Virus Vaccine, Inactivated, F-Oovciwm-3-2006-lik 2014-09-03 15:00:00 No Notes: (Same as: Fluzone Quadrivalent) [facility] magnesium sulfate 2014-09-03 04:00:00 No 4 gm, 100 mL, Route: IVPB, Drug form: INJ, ONCE, Start date: 09/02/14 22:00:00, Stop date: 09/02/14 22:00:00 [facility] ceFAZolin + Sodium Chloride 0.9% IV 100 mL 2014-09-03 04:00:00 No Notes: (Same As: Ancef, Kefzol) [facility] Saline Flush 0.9% 2014-09-03 03:00:00 No Notes: (Same as: BD Posiflush) [facility] Famotidine 2014-09-03 03:00:00 No Notes: (S kathe as: Pepcid) [facility] Docusate 2014-09-03 03:00:00 No Notes: (Ryland e as: Colace) [facility] Morphine 2014-09-03 01:41:00 No Not es: (Same as:MORPhine Sulfate) [facility] NS 1,000 mL 2014-09-03 00:15:00 No 1,000 mL, Rate: 75 ml/hr, Infuse over: 13.3 hr, Route: IV, Dosing Weight 107 kg, Total Volume: 1,000, Start date: 09/02/14 18:15:00, Duration: 30 day, Stop date: 10/02/14 18:14:00 [facility] Hydrocortisone sodium phosphate 50 MG/ML Injectable Solution 2014-09-02 22:00:00 No Notes: (Same as: Donald) [facility] 10 ML Cefazolin 100 MG/ML Prefilled Syringe 2014-09-02 22:00:00 No 2 gm, Route: IVPB, Drug form: INJ, Q8H, Dosing Weight 108.636, kg, Start date: 09/02/14 16:00:00, Duration: 3 doses or times, Stop date: 09/03/14 8:00:00 [facility] Ondansetron 2014-09-02 21:54:00 No 4 mg, Route: IVP, ONCE, Dosing Weight 108.636, kg, PRN Nausea & Vomiting, Start date: 09/02/14 15:54:00 [facility] Flumazenil 2014-09-02 21:54:00 No 0.2 mg, Route: IVP, PRN, Dosing Weight 108.636, kg, PRN Benzodiazepine Reversal, Initial dose, Start date: 09/02/14 15:54:00, Duration: 30 day, Stop date: 10/02/14 15:53:00 [facility] Naloxone 2014-09-02 21:54:00 No 0.04 mg, Route: IVP, Q2MIN, Dosing Weight 108.636, kg, PRN Narcotic Reversal, Start date: 09/02/14 15:54:00, Duration: 8 doses or times, Stop date: Limited # of times [facility] Hydromorphone 2014-09-02 21:54:00 No 0.5 mg, Route: IVP, Q5Min, Dosing Weight 108.636, kg, PRN Pain Score 7-10, Start date: 09/02/14 15:54:00, Duration: 4 doses or times, Stop date: Limited # of times [facility] Labetalol 2014-09-02 21:54:00 No 10 mg, Route: IVP, Q5Min, Dosing Weight 108.636, kg, PRN Elevated BP, Start date: 09/02/14 15:54:00, Duration: 5 doses or times, Stop date: Limited # of times [facility] Saline Flush 0.9% 2014-09-02 19:01:00 No Notes: (Same as: BD Posiflush) [facility] Ondansetron 2014-09-02 19:01:00 No Notes: ( Same as: Zofran) [facility] Promethazine 2014-09-02 19:01:00 No Notes: . (Same as: Phenergan) [facility] Acetaminophen 325 MG / Hydrocodone Bitartrate 10 MG Oral Tab let 2014-09-02 19:01:00 No Notes: Do not exceed 4gm/day of acetaminophen. (Same as: [place] 325/10) [facility] Hydromorphone 2014-09-02 19:01:00 No Notes: Same as: Dilaudid [facility] Acetaminophen 325 MG / Hydrocodone Janet trate 7.5 MG Oral Tablet [[place] 7.5/325] 2014-09-02 17:14:00 No 1 tab, PO, P RN, 0 Refill(s) [facility] Acetaminophen 325 MG / Hydrocodone Bitartrate 5 MG Oral Tabl et [[place] 5/325] 2014-09-02 17:13:00 No 1 tab, PO, PRN, 0 Refill(s) [facility] Bromocriptine 2014-09-02 17:13:00 No PO, TI D, 0 Refill(s) [facility] HYDROCODONE-ACETAMINOPHEN 7.5-325 MG TABS 2014-09-01 00:00:00 No [facility] BROMOCRIPTINE MESYLATE TABS 2014-09-01 00:00:00 No [facility] Vital Signs Vital Name Observation Time Observation Value Comments Source Weight 2020-04-05 06:35:00 235 [lb_av] [facility] BMI (Body Mass Index) 2020-04-05 06:35:00 33.7 kg/m2 [facility] Weight 2015-04-06 18:47:20 [facility] Height 2015-04-06 18:47:20 [facility] Temperature Oral (F) 2015-04-06 18:47:20 208.8 F [facility] Heart Rate 2015-04-06 18:47:20 [facility] Systolic (mm Hg) 2015-04-06 18:47:20 [facility] [place] Diastolic (mm Hg) 2015-04-06 18:47:20 [facility] Weight 2014-09-22 19:31:03 [facility] Height 2014-09-22 19:31:03 [facility] Temperature Oral (F) 2014-09-22 19:31:03 97.2 F [facility] Respitory Rate 2014-09-22 19:31:03 [facility] Heart Rate 2014-09-22 19:31:03 [facility] Systolic (mm Hg) 2014-09-22 19:31:03 [facility] [place] Diastolic (mm Hg) 2014-09-22 19:31:03 [facility] [place] Weight 2014-09-08 18:19:31 [facility] Height 2014-09-08 18:19:31 [facility] Temperature Oral (F) 2014-09-08 18:19:31 97.9 F [facility] Respitory Rate 2014-09-08 18:19:31 [facility] Heart Rate 2014-09-08 18:19:31 [facility] Systolic (mm Hg) 2014-09-08 18:19:31 [facility] [place] Diastolic (mm Hg) 2014-09-08 18:19:31 [facility] Temperature Oral (F) 2014-09-04 10:13:00 97.5 F [facility] Heart Rate 2014-09-04 10:13:00 [facility] Diastolic (mm Hg) 2014-09-04 10:13:00 [facility] Systolic (mm Hg) 2014-09-04 10:13:00 [facility] Respitory Rate 2014-09-04 10:13:00 [facility] Temperature Oral (F) 2014-09-04 05:23:00 97.6 F [facility] Diastolic (mm Hg) 2014-09-04 05:23:00 [facility] [place] Heart Rate 2014-09-04 05:23:00 [facility] Systolic (mm Hg) 2014-09-04 05:23:00 [facility] [place] Respitory Rate 2014-09-04 05:23:00 [facility] Systolic (mm Hg) 2014-09-04 02:17:00 [facility] Diastolic (mm Hg) 2014-09-04 02:17:00 [facility] [place] Respitory Rate 2014-09-04 02:17:00 [facility] Temperature Oral (F) 2014-09-04 02:17:00 97.9 F [facility] Heart Rate 2014-09-04 02:17:00 [facility] BMI Calculated 2014-09-02 23:49:00 [facility] Weight 2014-09-02 23:49:00 [facility] Height 2014-09-02 23:49:00 177.8 cm [facility] BMI Calculated 2014-09-02 16:52:00 [facility] Weight 2014-09-02 16:52:00 [facility] Height 2014-09-02 16:52:00 177.8 cm [facility] Weight 2014-09-01 19:18:21 [facility] Height 2014-09-01 19:18:21 [facility] Temperature Oral (F) 2014-09-01 19:18:21 82.1 F [facility] Respitory Rate 2014-09-01 19:18:21 [facility] Heart Rate 2014-09-01 19:18:21 [facility] Systolic (mm Hg) 2014-09-01 19:18:21 [facility] [place] Diastolic (mm Hg) 2014-09-01 19:18:21 [facility] [place] Procedures Procedure Date / Time Performed Performing Clinician [facility] e X-ray of chest, two views 2020-04-05 00:00:00 [facility] smoking/tobacco cessation, patient education and counseling 2014-09-01 19:18:21 [facility] Ankle joint operations [facility] Foot joint operations [facility] MRI [facility] Nerve operation [facility] Plan of Care Planned Activity Planned Date Details Comments Source Instructions Joint [facility] Encounters Start Date/Time End Date/Time Encounter Type Admission Type [facility] Care Department Encounter ID Source 2020-04-05 06:42:00 2020-04-05 07:55:00 Departed Emergency Room 1 Clotilde Gaitan [facility] [id number] [facility] 2015-04-06 08:23:00 2015-04-06 23:59:00 Outpatient Brenden Hawthorne [facility] [id number] 2014-10-07 05:00:00 2014-10-07 11:55:00 Outpatient Brenden Hawthorne [facility] [id number] 2014-09-18 15:18:00 2014-09-18 23:59:00 Outpatient Brenden Hawthorne [facility] [id number] 2014-09-07 12:46:00 2014-09-07 23:59:00 Outpatient Brenden Hawthorne [facility] [id number] 2014-09-02 10:22:00 2014-09-04 11:25:00 Outpatient Brenden Hawthorne [facility] [id number] 2014-09-02 06:45:00 2014-09-02 23:59:00 Outpatient Brenden Hawthorne [facility] [id number] 2014-08-05 11:44:00 2014-08-05 23:59:00 Outpatient Juno Chun [facility] [id number] Results Test Description Test Time Test Comments Results Result Comments Source ELBOW RIGHT COMPLETE 2020-04-05 08:04:00 [facility] [address] [place] [address] Patient Name: GUILLERMO CHAPMAN MR #: [id number] : 1980 Age/Sex: 39/M Req #: [id number] Adm Physician: Ordered by: Clotilde Gaitan MD Report #: [id number] Location: ER Room/Bed: Procedure: [id number] DX/ELBOW RIGHT COMPLETE Exam Date: 04/05/20 Exam Time: 0658 REPORT STATUS: Signed X-ray right shoulder 2 views HISTORY: Pain. COMPARISON: None available. FINDINGS: Bones: Tiny ossific fragments projecting between the radial head and olecranon on the AP view, and possibly of the coronoid process on the lateral view. Osseous alignment is within normal limits. Joints: The joint spaces are well- maintained. Small joint effusion. IMPRESSION: Tiny ossific fragments adjacent to the medial aspect of the olecranon elbow joint may represent old trauma, or acute avulsed fracture. Small joint effusion. Correlate with history of trauma. Signed by: Coby Rcio MD on 04/05/2020 8:09 AM Dictated By: COBY RICO MD 8 Transcribed By: JOI on 04/05/20808 COPY TO: CLOTILDE GAITAN MD ELBOW LEFT COMPLETE 2020-04-05 07:59:00 [place] [address] Patient Name: GUILLERMO CHAPMAN MR #: [id number] : 1980 Age/Sex: 39/M Req #: [id number] Adm Physician: Ordered by: Clotilde Gaitan MD Report #: [id number] Location: ER Room/Bed: Procedure: DX/ELBOW LEFT COMPLETE Exam Date: 04/05/20 Exam Time: 657 REPORT STATUS: Signed X-ray left elbow 2 views HISTORY: Pain. COMPARISON: None available. FINDINGS: Bones: No acute displaced fracture. Osseous alignment is within normal limits. Joints: The joint spaces are well-maintained. Soft tissues: The soft tissues appear unremarkable. Question small joint effusion. IMPRESSION: Question small joint effusion. If there is a history of trauma, consider repeat radiographs in 7-10 days to assess for healing changes. Signed by: Coby Rico MD on 04/05/2020 8:05 AM Dictated By: COBY RICO MD 4 Transcribed By: JOI on 04/05/20804 COPY TO: CLOTILDE GAITAN MD SHOULDER LEFT COMPLETE 2020-04-05 07:58:00 [place] [address] Patient Name: GUILLERMO CHAPMAN MR #: [id number] : 1980 Age/Sex: 39/M Req #: [id number] Adm Physician: Ordered by: Clotilde Gaitan MD Report #: [id number] Location: ER Room/Bed: Procedure: DX/SHOULDER LEFT COMPLETE Exam Date: 04/05/20 Exam Time: 657 REPORT STATUS: Signed X-ray left shoulder 2 views HISTORY: Pain. COMPARISON: None available. FINDINGS: Bones: No acute displaced fracture. Osseous alignment is within normal limits. Joints: The joint spaces are well-maintained. Soft tissues: The soft tissues appear unremarkable. IMPRESSION: No acute fracture or dislocation of the left shoulder. Signed by: Coby Rico MD on 04/05/2020 7:59 AM Dictated By: COBY RICO MD 8 Transcribed By: JOI on 04/05/20758 COPY TO: CLOTILDE GAITAN MD SHOULDER RIGHT COMPLETE 2020-04-05 07:57:00 [place] [address] Patient Name: GUILLERMO CHAPMAN MR #: [id number] : 1980 Age/Sex: 39/M Req #: [id number] Adm Physician: Ordered by: Clotilde Gaitan MD Report #: [id number] Location: ER Room/Bed: Procedure: [id number] DX/SHOULDER RIGHT COMPLETE Exam Date: 04/05/20 Exam Time: 0658 REPORT STATUS: Signed X-ray 2 views of the right shoulder. HISTORY: Pain. COMPARISON: None available. FINDINGS: Bones: No acute displaced fracture. Osseous alignment is within normal limits. Joints: The joint spaces are well-maintained. Soft tissues: The soft tissues appear unremarkable. IMPRESSION: No acute fracture or dislocation of the right shoulder. Signed by: Coby Rico MD on 04/05/2020 7:58 AM Dictated By: COBY RICO MD 7 Transcribed By: JOI on 04/05/20757 COPY TO: CLOTILDE GAITAN MD CHEST 2 VIEWS 2020-04-05 07:56:00 [facility] [address] [address] Patient Name: GUILLERMO CHAPMAN MR #: [id number] : 1980 Age/Sex: 39/M Req #: [id number] Adm Physician: Ordered by: Clotilde Gaitan MD Report #: [id number] Location: ER Room/Bed: Procedure: [id number] DX/CHEST 2 VIEWS Exam Date: 04/05/20 Exam Time: 0658 REPORT STATUS: Signed EXAMINATION: CHEST 2 VIEWS INDICATION: pain COMPARISON: None FINDINGS: TUBES and LINES: None. LUNGS: Normal lung volumes. Lungs are clear. No consolidations. PLEURA: No pleural effusion or pneumothorax. HEART AND MEDIASTINUM: The cardiomediastinal silhouette is unremarkable. BONES AND SOFT TISSUES: No acute osseous lesion. Soft tissues are unremarkable. UPPER ABDOMEN: No free air under the diaphragm. IMPRESSION: No acute thoracic radiographic abnormality. Signed by: Coby Rico MD on 04/05/2020 7:57 AM Dictated By: COBY RICO MD [id number] Transcribed By: JOI on 04/05/207 COPY TO: CLOTILDE GAITAN MD CHEM PANEL 2014-10-07 11:40:00 79 [facility] [place] CHEM PANEL 2014-10-07 11:40:00 1.2 [facility] [place] CHEM PANEL 2014-10-07 11:40:00 13 [facility] [place] ELECTROLYTES 2014-09-18 21:29:00 138 [facility] [place] ELECTROLYTES 2014-09-07 19:23:00 137 [facility] [place] ELECTROLYTES 2014-09-04 03:54:00 140 [facility] URINE AND STOOL 2014-09-03 20:58:00 1.014 [facility] ELECTROLYTES 2014-09-03 20:00:32 139 [facility] ELECTROLYTES 2014-09-03 15:57:00 139 [facility] CHEM PANEL 2014-09-03 09:00:00 3.4 [facility] CHEM PANEL 2014-09-03 09:00:00 3.5 [facility] [place] CHEM PANEL 2014-09-03 09:00:00 88 [facility] [place] CHEM PANEL 2014-09-03 09:00:00 8.6 [facility] CHEM PANEL 2014-09-03 09:00:00 24 [facility] CHEM PANEL 2014-09-03 09:00:00 1.1 [facility] [place] [facility] CHEM PANEL 2014-09-03 09:00:00 11 [facility] [facility] CHEM PANEL 2014-09-03 09:00:00 104 [facility] CHEM PANEL 2014-09-03 09:00:00 4.7 [facility] CHEM PANEL 2014-09-03 09:00:00 123 [facility] CHEM PANEL 2014-09-03 09:00:00 12.7 [facility] [place] [facility] HEMATOLOGY 2014-09-03 09:00:00 16.1 [facility] HEMATOLOGY 2014-09-03 09:00:00 46.7 [facility] HEMATOLOGY 2014-09-03 09:00:00 5.21 [facility] HEMATOLOGY 2014-09-03 09:00:00 13.9 [facility] HEMATOLOGY 2014-09-03 09:00:00 34.4 [facility] HEMATOLOGY 2014-09-03 09:00:00 Test Item MCH (test code = MCH) 30.9 pg 27.0-31.0 [facility] BbrhtkvOXTRRSCQST9784-23-79 09:00:0089.8[facility] 2014-09-03 09:00:50165Ccflmnmg TfbtseeFYPLACWJJL0249-83-74 09:00:008.8[facility] UnwuglvIKPUZTERTN9981-23-79 09:00:0022.3[facility] TjdksogQRYSYEBWNX9681-21-58 09:00:0089.2[facility] UtcrkaqHPCXHINECP4615-87-41 09:00:006.7[facility] RSMWQTTCPU5718-38-59 09:00:000.1[facility] IxjhebbILUNIYHEVK0362-33-00 09:00:001.5 [facility] EbrvsyuPRPBAISKHR2126-59-68 09:00:003.8[facility]ann[facility]Y 2014-09-03 09:00:0019.8[facility] VhymwskMFOFSDLYGO3664-33-24 09:00:000.2[facility] PunwyzkHJTLAOFKQY7538-06-79 09:00:000.9[facility] HermannPARATHYROID PROFILE 2014-09-03 09:00:001.06[facility] HermannPARATHYROID VSXRUEH1927-84-93 09:00:00 1.08[facility]ann[facility]INE AND KRHUJ4144-76-36 09:00:001.007[facility] HermannCHEM DVALB6580-98-24 03:30:27917Blcbifpl HermannURINE AND RHQUJ6192-40-47 03:30:00 1.016[facility]ann[facility]INE EKLK4609-41-39 03:30:12453Wbhvgcuz HermannCHEM PANEL 2014-09-03 01:53:311.4[facility] HermannCHEM VCRIO4951-12-59 01:53:314.2[facility] KvfxzkeGSVTHQBMNAZT2707-87-40 01:53:3114.4[facility] EntutqcFRCUITTAQQFE9196-65-63 01:53:3188[facility] DnihqihIHEQWJONMFSI8355-84-56 01:53:3112[facility] JHKIWNLMDVEV8295-19-77 01:53:311.1[facility] JygkjgyMHCIREHEVSPG3006-71-03 01:53:314.4[facility] CufrwlaJEAMOOUUFHTI2873-68-95 01:53:83285Ekw[facility]j [place] CGYZDXIQGPIE7940-97-27 01:53:3123[facility] PquazuuVXEIFDUOPCEX8662-16-68 01:53:31 8.4[facility] QcmqtbvKALUIVXQNQWO1330-41-12 01:53:55375Qnnjigsj HermannHEMATOLOGY 2014-09-03 01:53:3115.8[facility] WuuhfjbZIQUAQVNOU0905-94-44 01:53:315.33[facility] EgxlhdyUYWAHZWOPO7375-74-60 01:53:3189.5[facility] ZufcdhqYTKEXMBOGO5366-89-10 01:53:3147.7[facility] JhdntycJWXEBTXOHO6516-04-42 01:53:31* Test Item Value Reference Range Interpretation Comments MCH (test code = MCH) 29.7 pg 27.0-31.0 [facility] IeivtpxZDCXAIDDYK8461-46-54 01:53:3114.4[facility]ann[facility]MATOLOGY 2014-09-03 01:53:3133.2[facility] PczhofiGHSJQDMMUD1305-30-89 01:53:318.8[facility] QgsfgcyXHVLWZAUDO5723-01-18 01:53:11342Dshonslm IepuinvMITHJPFTXC0711-64-15 01:53:3126.8[facility] LaqqqkfSKQGXUSFWS8052-13-54 01:53:311.2[facility] AJJSXZWNST2425-36-90 01:53:310.1[facility] VjqqsynYSATEDXZTP9378-57-17 01:53:31 89.0[facility] YpoqcocKSKERACMGS0469-56-47 01:53:316.1[facility]ann[facility]MATOLOGY 2014-09-03 01:53:314.5[facility] IdfsxvdQYJVIVRPDL0413-29-34 01:53:310.1[facility] FdqsehfNVKAWNFEVW2221-27-84 01:53:310.3[facility] OtydrtjUJPILHRPLV3699-59-93 01:53:3123.8[facility] DygonuhJUHLQHUKWL0593-12-49 01:53:311.6[facility] PARATHYROID LWWXNHM3525-97-04 01:53:311.04[facility] HermannPARATHYROID PROFILE 2014-09-03 01:53:311.06[facility] HermannBLOOD BANK JSLPFTW6077-09-65 16:56:00 Negative (09/02/14 10:56 AM)[facility]annCHEM DWOBB5903-89-65 16:56:0098 [facility]annCHE[facility] FMFQH1758-56-93 16:56:31018Whtqtoqt HermannCHEM PANEL 2014-09-02 16:56:008.9[facility] HermannCHEM CBCYT9641-00-36 16:56:0024[facility] HermannCHEM BALVV2921-60-93 16:56:001.0[facility] HermannCHEM ODHUK9488-67-43 16:56:004.2[facility] HermannCHEM BAIPE2067-95-23 16:56:97763Ouzixmrg HermannCHEM PJUEO8547-20-60 16:56:0012[facility] HermannCHEM HKHUA8577-35-57 16:56:0012.2 [facility] QymwxghRDGXQTTFIH3718-52-42 16:56:009.3[facility] HermannHEMATOLOGY 2014-09-02 16:56:0014.1[facility] EqvdubyEFCPBQXOJL7127-94-99 16:56:89334Jxhnoabl HqwzthbFFTPKCUTEE9015-41-24 16:56:0089.3[facility] JzhnfcnTRSYBUTYDC1399-09-33 16:56:0033.1[facility] CsccuneBEIHSXOTTH4719-22-56 16:56:00* Test Item Value Reference Range Interpretation Comments MCH (test code = MCH) 29.5 pg 27.0-31.0 [facility] CcbosunBZWQQZIOCV8815-45-78 16:56:0016.5[facility] HermannHEMATOLOGY 2014-09-02 16:56:0050.0[facility] HobvkrpPGDNKDXQWM2742-33-80 16:56:0012.3[facility] LxnspqxJDGGYTQBLQ0780-14-61 16:56:005.60[facility] OpuhckqKOHKCOMDFV6493-89-20 16:56:000.6[facility] BesgxwzHBLIAZXALB9469-88-94 16:56:002.3[facility] [place] SYSQPXTCCK9431-80-44 16:56:000.1[facility] QgjlnrcZRINFRSYBH0027-88-77 16:56:000.3 [facility] LztjouyBANIENEQLG9711-05-28 16:56:0073.3[facility]annHEMATOLOGY 2014-09-02 16:56:005.3[facility] RepilruSQGOVBPYQR8903-29-00 16:56:0018.6[facility] BbqfvxhNJTCMXTYIK6367-92-35 16:56:009.0[facility] AtbqhqiXEBLGNOPNK3026-86-46 16:56:000.5[facility] GvouwmfAFJTJUHDUY4902-88-66 16:56:002.3[facility] THGSMAZELA5324-05-69 16:56:000.95[facility] PweledvLCCUGEQRZL0112-95-80 16:56:00* Test Item Value Reference Range Interpretation Comments PT (test code = PT) 12.7 s 12.0-14.7 [facility] KxizqrjHTEJSTRSFD5509-08-44 16:56:00* Test Item Value Reference Range Interpretation Comments PTT (test code = PTT) 32.6 s 22.9-35.8 [facility] [facility] KjfsgbxDwzpcvlpm1997-37-79 21:28:65242Bphzazzh HermannChemistry 2014-09-01 21:28:558636Ggjnmmde VfyxawaMdczpnzza1214-70-38 21:28:008.46[facility] HbyrpyuXtishxftz0232-04-10 21:28:001.620[facility] LixrgtiUmswcyvce8855-65-00 21:28:007.4[facility] OxhpgagBzzskuugvb0996-51-57 21:28:001[facility]
--- NOTE | 2020-04-06 02:48 | Diagnostic Imaging Report ---
CT scan of the RIGHT SHOULDER, WITHOUT intravenous contrast. TECHNIQUE: Standard departmental protocols were used. Sagittal and coronal reformatted images were obtained. DLP: 456.22 mGy/cm HISTORY: Pain COMPARISON: Right shoulder x-ray dated 04/05/2020 FINDINGS: No acute fracture or dislocation of the right shoulder. No periosteal reaction, erosion, or abnormal soft tissue calcification. Punctate humeral head sclerotic focus, likely a bone island. Normal right acromioclavicular joint. Soft tissues are unremarkable. IMPRESSION: No acute fracture or dislocation of the right shoulder. If clinical symptoms persist, patient may benefit from MRI of the shoulder for detailed evaluation of ligaments and tendons. Signed by: Dr. De Hill MD on 04/06/2020 2:45 AM
--- NOTE | 2020-04-06 03:38 | Diagnostic Imaging Report ---
Examination: CT CERVICAL SPINE WO CONTRAST HISTORY:Neck pain and right arm with limited range of motion for 2 weeks. COMPARISON:None. TECHNIQUE: Multidetector helical axial images were obtained without contrast from the foramen magnum to T1. Coronal and sagittal reformatted images were done. Bone and soft tissue windows were evaluated. Dose modulation, iterative reconstruction, and/or weight based adjustment of the mA/kV was utilized to reduce the radiation dose to as low as reasonably achievable. FINDINGS: Alignment:Normal alignment with straightening of normal lordosis. Vertebrae: Normal height and density. No acute fracture, infection or neoplasm. Disc space heights: Normal height. Caliber of spinal canal: Developmentally normal. Posterior fossa and craniocervical junction: Foramen magnum patent. No Chiari 1 malformation. Soft tissues: No abnormality. Degenerative changes: Moderate bilateral neural foraminal narrowing due to uncovertebral arthropathy at C6-C7. No canal stenosis. The remaining cervical levels demonstrate no disc herniation or bulge or canal or foraminal stenosis. Visualized lung apices: No abnormalities. IMPRESSION: 1. No acute abnormalities. 2. Moderate bilateral neural foraminal narrowing at C6-C7. No canal stenosis. Signed by: Dr. Mayra Syed M.D. on 04/06/2020 3:34 AM
[2020-04-06 03:43] VITALS: BP 127/76
== END 2020-04-06 03:50 | disposition home or self-care (01) ==
LOC: ER 01:35
DX: M25.511 Pain in right shoulder (principal); M48.02 Spinal stenosis, cervical region; F17.210 Nicotine dependence, cigarettes, uncomplicated
CPT/HCPCS: 72125; 73200; 99283; J1885; J2930